=== PATIENT | male | born 1990 | race African-American/Black ===

== ENCOUNTER 2023-03-10 09:20 | Inpatient (IN) ==
[2023-03-10] MEDS ORDERED: fentaNYL citrate PF 100 MCG/2 ML VIAL ONE (09:34)
[2023-03-10] MEDS ORDERED: fentaNYL citrate PF 100 MCG/2 ML VIAL IM ONE (09:34)
--- NOTE | 2023-03-10 09:39 | Emergency Department Note ---
ED Provider Note History of Present Illness Chief Complaint: Knee Injury/Pain Stated Complaint: RT KNEE PAIN Time Seen by Provider: 03/10/23 09:30 32-year-old [employer] [place] inmate who presents to the emergency department for evaluation of a right knee injury when he fell this morning. The patient has a history of Parkinson's disease, and uses a walker for ambulation. The patient reports that he lost his balance while trying to get off of the toilet and fell, twisting his knee. When he tried to stand up again, he fell a second time. The patient rates his discomfort a 10 out of 10. Home Medications Medication Instructions Recorded Confirmed Type albuterol sulfate 90 mcg/actuation 1 inh inhalation QID PRN 03/02/23 03/02/23 History aerosol inhaler atorvastatin 20 mg tablet (Lipitor) 20 mg PO DAILY 03/02/23 03/02/23 History buspirone 30 mg tablet 30 mg PO BID 03/02/23 03/02/23 History doxepin 75 mg capsule 75 mg PO DAILY 03/02/23 03/02/23 History ibuprofen 600 mg tablet 600 mg PO Q6H PRN 03/02/23 03/02/23 History lisinopril 40 mg tablet 40 mg PO DAILY 03/02/23 03/02/23 History metoprolol tartrate 100 mg tablet 100 mg PO BID 03/02/23 03/02/23 History mirtazapine 15 mg tablet 15 mg PO DAILY 03/02/23 03/02/23 History nabumetone 500 mg tablet 500 mg PO BID 03/02/23 03/02/23 History pantoprazole 40 mg tablet,delayed 40 mg PO DAILY 03/02/23 03/02/23 History release (Protonix) tolnaftate 1 % topical cream 1 applic topical DAILY 03/02/23 03/02/23 History trazodone 100 mg tablet 100 mg PO DAILY 03/02/23 03/02/23 History venlafaxine 25 mg tablet 25 mg PO DAILY 03/02/23 03/02/23 History Allergies Allergy/AdvReac Type Severity Reaction Status Date / Time No Known Drug Allergies AdvReac Verified 03/02/23 13:14 Past Med/Surg History Medical History Anxiety Chronic low back pain Depression High cholesterol HTN (hypertension) Lumbar radicular pain Tremor Social History Smoking Status: Never smoker Hx Alcohol Use: No Hx Substance Use: No Preferred Language: Lithuanian Visual Impairment: No Limitations Hearing Ability: Normal Beliefs That Will Affect Care: None marital status: Current Living Situation: Other current occupational status: unemployed current occupation: inmate Feels Safe at Home: Yes Physical Exam Vital Signs Vital Signs - 24 hr 03/10/23 09:22 03/10/23 09:52 03/10/23 10:25 Temperature 36.8 C Temperature Source Temporal Artery Scan Pulse Rate 94 H 97 H Pulse Rate [Apical] 91 H Pulse Rhythm [Apical] Regular Respiratory Rate 18 18 Respiratory Effort / Characteristics Non-Labored Spontaneous Respiratory Depth Normal Normal Respiratory Pattern Regular Regular Blood Pressure 141/86 H Blood Pressure [Right Arm] 130/98 Blood Pressure Mean 104 Blood Pressure Mean [Right Arm] 108 Blood Pressure Position Sitting Blood Pressure Position [Right Arm] Lying Pulse Oximetry 97 94 Oxygen Delivery Method Room Air Room Air Sepsis Recent Fever Within 48 Hours No Sepsis New/Unexplained Change in Mental Status No Sepsis Action Taken by Nursing No Action Required 03/10/23 13:59 03/10/23 14:36 Temperature Temperature Source Pulse Rate 87 Pulse Rate [Apical] 91 H Pulse Rhythm [Apical] Regular Respiratory Rate 18 Respiratory Effort / Characteristics Non-Labored Spontaneous Respiratory Depth Normal Respiratory Pattern Regular Blood Pressure Blood Pressure [Right Arm] 131/94 Blood Pressure Mean Blood Pressure Mean [Right Arm] 106 Blood Pressure Position Blood Pressure Position [Right Arm] Lying Pulse Oximetry 95 Oxygen Delivery Method Room Air Sepsis Recent Fever Within 48 Hours Sepsis New/Unexplained Change in Mental Status Sepsis Action Taken by Nursing CONSTITUTIONAL: Healthy and well nourished. Patient appears in severe disco mfort. HEENT: Normocephalic, atraumatic. MUSCULOSKELETAL: Examination shows diffuse edema of the right knee with a laterally dislocated patella. No tenderness to palpation through the proximal leg, and pedal pulses are intact. Further ligamentous exam could not be performed because of the patient's initial discomfort. INTEGUMENTARY: No rash or other significant dermatologic conditions noted. HEMATOLOGIC: No ecchymosis or petechiae. PSYCHIATRIC: Positive affect. NEUROLOGIC: Right lower extremity is sensory intact. Course Course Patient history and physical exam were performed. Nurses notes were reviewed. Vital signs were reviewed. I was unable to collect history from the patient as he was in severe discomfort. The patient was administered fentanyl 150 mcg IM. X-rays of the right knee shows a laterally displaced patella, with radiologist questioning a possible line of lucency over the mid fibula. At this point, I was able to reduce the patella as indicated in the previous Procedure section. It immediately dislocated again, indicating significant medial retinacular instability, even with the knee and full extension. I did attempt to perform tape application for stability, however this did not work. X-rays of the tib- fib again question the possibility of a line of lucency or vascular channel of the mid fibular region. At this point, I did reach out to her Dr. Mares, orthopedic surgeon on-call for [facility], who indicated that no surgical management could be performed until he knew the extent of the patient's injuries, and likely would not be an emergent surgical case. He did indicate that an MRI would need to be performed in order to determine the extent of injuries. At this point, I then reached out to the [facility] [place] clinical supervisor [employer], Ava, who indicated that insurance would cover an MRI as long as it was done in the emergency department. If he is discharged, he would need further MRI authorization, and their facility only has a mobile MRI unit every other week, possibly extending his work-up time an additional 3 to 4 weeks, which would be very difficult given the patient's history and need for a walker, as well as an adequate pain control. At this point, I did order a noncontrast MRI of the right knee. The patient did want something to eat, however indicated that I would prefer to wait in case the patient would require any acute surgical intervention. IV access was established, and the patient was hydrated with a liter of normal saline. An order was placed for as needed morphine as needed for pain control. There was a delay in MRI imaging because of technical issues. The patient's care was transferred to Sanchez Liz PA-C at change of shift. Please see his dictation for further MRI results, and discussions with Dr. Mares, who is also advised of the delayed MRI results. Administered Medications Morphine Sulfate (Morphine Sulfate 4 Mg/Ml 1 Ml Carp\Vial) 4 mg IV Q30M PRN PRN Reason: Pain Stop: 03/24/23 14:05 Last Admin: 03/10/23 15:53 Dose: 4 mg Documented By: Admin: 03/10/23 14:16 Dose: 4 mg Documented By: MICHELLE Discontinued Medications Fentanyl Citrate (Fentanyl Citrate Pf 100 Mcg/2 Ml Vial) Confirm Administered Dose 200 mcg .ROUTE .STK-MED ONE Stop: 03/10/23 09:35 Last Admin: 03/10/23 09:42 Dose: Not Given Documented By: MICHELLE Fentanyl Citrate (Fentanyl Citrate Pf 100 Mcg/2 Ml Vial) 150 mcg IM NOW ONE Stop: 03/10/23 09:35 Last Admin: 03/10/23 09:39 Dose: 150 mcg Documented By: MICHELLE Sodium Chloride (Nss 1000ml) 1,000 mls @ 999 mls/hr IV .Q1H1M ONE Stop: 03/10/23 13:58 Last Infusion: 03/10/23 14:44 Dose: 0 mls/hr Documented By: Admin: 03/10/23 13:27 Dose: 999 mls/hr Documented By: MICHELLE Ketorolac Tromethamine (Ketorolac Tromethamine 60 Mg/2 Ml Vial) 30 mg IM NOW STA Stop: 03/10/23 10:06 Last Admin: 03/10/23 10:08 Dose: Not Given Documented By: MICHELLE Ketorolac Tromethamine (Ketorolac Tromethamine 15 Mg/Ml Vial) 15 mg IV NOW STA Stop: 03/10/23 12:59 Last Admin: 03/10/23 13:27 Dose: 15 mg Documented By: MICHELLE Morphine Sulfate (Morphine Sulfate 10 Mg/Ml Carp/Vial) 8 mg IM NOW STA Stop: 03/10/23 11:59 Last Admin: 03/10/23 12:26 Dose: 8 mg Documented By: MICHELLE Ondansetron HCl (Ondansetron 4 Mg Od Tab) 4 mg PO NOW STA Stop: 03/10/23 11:59 Last Admin: 03/10/23 12:26 Dose: 4 mg Documented By: MICHELLE Medical Decision Making Medical Records Attestation: I reviewed the patient's medical records. Home Medications was personally reviewed by me Imaging Data Attestation: I personally reviewed and interpreted this imaging study as foll ows: My Impression: My interpretation of right knee x-rays shows a laterally dislocated patella with a questionable line of lucency of the right mid fibula. My interpretation of an additional right tib-fib x-ray, again questions line of lucency versus vascular channel of the right mid fibular region. Noncontrast MRI of the right knee was ordered, and was pending at the time of transfer of care at end of shift. Radiologist reports were also reviewed with concurrence. Radiologist's Impression: Knee X-Ray 03/10/23 09:34 XR knee RT 1 or 2V routine HISTORY: 32 years-old Male R knee injury, prob patellar dislocation right knee pain status post fall COMPARISON: None TECHNIQUE: 2 views of the right knee FINDINGS: Moderate to extensive soft tissue swelling of the knee is noted circumferentially. There is lateral dislocation of the patella. Moderate size joint effusion. Ill-defined obliquely oriented lucency of the mid fibular diaphysis. No acute fracture identified. IMPRESSION: 1. No acute fracture identified. 2. Soft tissue swelling with lateral dislocation of the patella. 3. Ill-defined obliquely oriented lucency of the mid fibular diaphysis is likely artifactual. Correlation with dedicated tibia and fibula radiographs recommended. ACT 112: Negative or not required by law. The above report was generated using voice recognition software. It may contain grammatical, syntax or spelling errors. Electronically signed by: Gerson Crespo M.D. 03/10/2023 10:36 AM Tibia/Fibula X-Ray 03/10/23 10:46 XR tibia fibula RT 2V CLINICAL HISTORY: Abnormal XR read - s/p patellar reduction. Right knee pain. COMPARISON STUDY: Right knee 03/10/2023. FINDINGS: There is persistent lateral patellar dislocation. Soft tissue swelling within the right knee again noted. Subtle lucency at the mid shaft of the right fibula is again noted. The tibia appears intact. IMPRESSION: 1. No change in the lateral patellar dislocation. 2. Subtle lucency at the mid shaft of the right fibula persists. This could represent a hairline fracture or vascular channel. Clinical correlation recommended to assess for pain at this location. ACT 112: Negative or not required by law. Electronically signed by: Osmin Powell M.D. 03/10/2023 11:36 AM MDM Narrative See ED Course section for further details of today's visit. The patient presents with complaint of severe right knee pain after falling this morning. Because of pain severity, the patient was initially administered IM fentanyl. X-rays of the right knee showed a lateral patellar dislocation. Reduction was easily performed, however the patient had notable medial retinacular retention, with easily recurrent patellar dislocation. I did attempt to tape the patella medially, however the patella only submarined under the tape. Because of concerns for other underlying injuries, and after discussed the case further with Dr. Mares, orthopedic surgeon on-call, an MRI was ordered and was pending at the time of my end of shift. Further disposition will be determined once MRI results are reviewed by Dr. Mares. Impression Closed dislocation of right patella, Effusion of right knee joint, Status post fall, History of Parkinson's disease Discharge Plan Visit Data Chief Complaint: Knee Injury/Pain Stated Complaint: RT KNEE PAIN ED Provider: Nirav Nichols ED Midlevel Provider: Karl Hughes Discharge Problem: Closed dislocation of right patella, Effusion of right knee joint, Status post fall, History of Parkinson's disease Forms Stand Alone Forms: My [facility] [employer] Prescriptions Prescriptions: No Action albuterol sulfate 90 mcg/actuation HFA aerosol inhaler 1 inh inhalation QID PRN atorvastatin [Lipitor] 20 mg tablet 20 mg PO DAILY buspirone 30 mg tablet 30 mg PO BID doxepin 75 mg capsule 75 mg PO DAILY ibuprofen 600 mg tablet 600 mg PO Q6H PRN lisinopril 40 mg tablet 40 mg PO DAILY metoprolol tartrate 100 mg tablet 100 mg PO BID pantoprazole [Protonix] 40 mg tablet,delayed release (DR/EC) 40 mg PO DAILY tolnaftate 1 % cream 1 applic topical DAILY trazodone 100 mg tablet 100 mg PO DAILY venlafaxine 25 mg tablet 25 mg PO DAILY nabumetone 500 mg tablet 500 mg PO BID mirtazapine 15 mg tablet 15 mg PO DAILY Referrals Referrals: Cydney WASHINGTON [Primary Care Provider] -
[2023-03-10] MEDS ORDERED: KETOROLAC TROMETHAMINE 60 MG/2 ML VIAL IM STA (10:05)
--- NOTE | 2023-03-10 10:37 | XRay Report ---
XR knee RT 1 or 2V routine HISTORY: 32 years-old Male R knee injury, prob patellar dislocation right knee pain status post fall COMPARISON: None TECHNIQUE: 2 views of the right knee FINDINGS: Moderate to extensive soft tissue swelling of the knee is noted circumferentially. There is lateral d islocation of the patella. Moderate size joint effusion. Ill-defined obliquely oriented lucency of th e mid fibular diaphysis. No acute fracture identified. IMPRESSION: 1. No acute fracture identified. 2. Soft tissue swelling with lateral dislocation of the patella. 3. Ill-defined obliquely oriented lucency of the mid fibular diaphysis is likely artifactual. Correla tion with dedicated tibia and fibula radiographs recommended. ACT 112: Negative or not required by law. The above report was generated using voice recognition software. It may contain grammatical, syntax o r spelling errors. Electronically signed by: Gerson Crespo M.D. 03/10/2023 10:36 AM
--- NOTE | 2023-03-10 11:37 | XRay Report ---
XR tibia fibula RT 2V CLINICAL HISTORY: Abnormal XR read - s/p patellar reduction. Right knee pain. COMPARISON STUDY: Right knee 03/10/2023. FINDINGS: There is persistent lateral patellar dislocation. Soft tissue swelling within the right kne e again noted. Subtle lucency at the mid shaft of the right fibula is again noted. The tibia appears intact. IMPRESSION: 1. No change in the lateral patellar dislocation. 2. Subtle lucency at the mid shaft of the right fibula persists. This could represent a hairline frac ture or vascular channel. Clinical correlation recommended to assess for pain at this location. ACT 112: Negative or not required by law. Electronically signed by: Osmin Powell M.D. 03/10/2023 11:36 AM
[2023-03-10] MEDS ORDERED: ONDANSETRON 4 MG OD TAB PO STA (11:58)
[2023-03-10] MEDS ORDERED: MoRPHine SULFATE 10 MG/ML CARP/VIAL IM STA (11:58)
[2023-03-10] MEDS ORDERED: SODIUM CHLORIDE 0.9% 1000ML 1,000 ML IV ONE (12:58)
[2023-03-10] MEDS ORDERED: KETOROLAC TROMETHAMINE 15 MG/ML VIAL IV STA (12:58)
[2023-03-10] MEDS: MoRPHine SULFATE 4 MG/ML 1 ML CARP\\VIAL IV PRN ×4 (14:16→20:27)
--- NOTE | 2023-03-10 19:35 | Magnetic Resonance Report ---
Exam(s): MRI RIGHT KNEE Without Contrast EXAM: MR Right Lower Extremity Without Intravenous Contrast, Knee CLINICAL HISTORY: Reason for exam: R knee injury. TECHNIQUE: Multiplanar magnetic resonance images of the right knee without intravenous contrast. COMPARISON: No relevant prior studies available. FINDINGS: There are findings of recent lateral patellar dislocation. Medial patellofemoral ligament is completely torn at its femoral attachment. Patella is laterally subluxed with respect to the trochlea. There is chondral surface irregularity along the medial patellar facet suggesting chondral fractures. There is an osteochondral impaction fracture along the peripheral aspect of the lateral femoral condyle with subjacent bone marrow edema. Lipohemarthrosis is noted in the knee. There is a subtle osteochondral fracture involving the medial aspect of the lateral tibial plateau. There is focal articular surface depression measuring 3 mm and subchondral bone marrow edema. Medial and lateral menisci are intact. Femorotibial articular cartilage is maintained. Medial and lateral ligaments and supporting structures are intact. Extensor mechanism is intact. Anterior and posterior cruciate ligaments are intact. There is diffuse subcutaneous edema. IMPRESSION: 1. Recent lateral patellar dislocation with complete tear of the medial patellofemoral ligament at its femoral attachment. 2. Associate osteochondral impaction fracture involving the peripheral aspect of the lateral femoral condyle. 3. Chondral surface irregularity along the medial patellar facet suggesting chondral fracture. 4. Small osteochondral impaction fracture involving the medial aspect of the lateral tibial plateau. 5. Lipohemarthrosis and soft tissue swelling. Electronically signed by: Santino Gilman M.D. 03/10/23 19:34 PM
--- NOTE | 2023-03-10 20:27 | Emergency Department Note ---
ED Visit Note Case was signed out to me at time of shift change from my colleague Karl Hughes PA-C pending MRI of the right knee. See prior ED notes for further details. Patient rested comfortably until MRI had resulted which demonstrated complete tear of the medial patellofemoral ligament at its femoral attachment, fracture of the lateral tibial plateau, and chondral irregularities of the lateral femoral condyle and medial patellar facet. Patient was evaluated by Dr. Mares (orthopedics on-call) at bedside who will admit the patient under his service for definitive management. Dr. Mares requested a knee immobilizer and elevation, and the patient can eat this evening. .
--- NOTE | 2023-03-10 20:43 | History & Physical Report ---
Date of Service March 10, 2023 Assessment & Plan (1) Closed dislocation of right patella: (2) Effusion of right knee joint: (3) Instability of right knee joint: Plan Given the significant instability of his patella and acute traumatic injury with his underlying tremor and weakness of his legs, I think he is at significant risk of failure potential additional injury with any attempted outpatient management with bracing and physical therapy. His acute injury represents an avulsion of the medial epicondyle. There is an opportunity to acutely repair with the expectation of good outcomes of stability to the patellofemoral joint. My recommendation is to proceed with surgery which would include knee arthroscopy, chondroplasty, loose body removal, open medial patellofemoral ligament repair. This will involve an examination under anesthesia. I reviewed his diagnosis, prognosis, and treatment options. I did review that I recommend surgical intervention soon before he transition back to the senior living setting. Outcomes of the surgery will be dependent on appropriate physical therapy. He will have a medial patellofemoral ligament reconstruction physical therapy protocol prescribed to him. This involves use of the brace and protected weightbearing for 6 weeks. Physical therapy is best done at 23 X/week. We reviewed the risks of surgery includes but is not limited to, infection, nerve or vessel injury, arthrofibrosis, need for repeat or revision surgery, failure of the surgery to provide adequate stability, implant complications and migration, failure to heal, pain syndromes, blood clots, and complications later anesthesia. After our discussion, he demonstrated a good understanding of his diagnosis and treatment options, he asked appropriate questions, and desired to proceed with surgical treatment as I described. He will be admitted to my service. I will ask for internal medicine or the hospitalist to look over his parkinsonian based medications further recommendations on ongoing treatment while he is here as a surgical patient. He will be n.p.o. at midnight for surgery tomorrow. History of Present Illness Chief Complaint: Right patella traumatic dislocation Primary Care Provider: PADMINI Lamas 32-year-old incarcerated male reports that he slipped and fell in the bathroom area today resulting in his significant displacement of his knee and inability to bear weight. He was brought to the emergency room and diagnosed with a traumatic patella dislocation. He states he has never had a patella dislocation or right knee problem before. The pain has been severe. The ER staff attempted appropriate management with closed reduction. Unfortunately, the reduction could not be maintained. He is easily slipped laterally despite all efforts including bracing and taping. Because of reported severe displacement and his inability remain reduced and ambulate safely, an MRI was obtained. Senior Living guards accompanying him reports that it is challenging for patients to be treated with physical therapy. Patient reports he has had a several year history of significant tremors. When he was at another senior living he was treated as if he has had parkinsonian disease. He was administered Parkinson's medications. He did not have much improvement. Upon arrival at [facility], his parkinsonian medication was discontinued. He had a interval relief of some tremor but recently they have started to worsen. He wants to be seen by neurology soon. He says he has about 2 years of incarceration left. He says his tremors resolved significant difficulty walking. He has had leg weakness over the past years. He has been wheelchair- bound at times. He says when the parkinsonian medications were discontinued he made significant progress from a wheelchair to a walker and then eventually to a cane. Recently his left-sided tremors have become worse and he is reverted back to a cane, and he thinks that may be a wheelchair may be soon. He is very concerned about his knee because he has enough difficulty getting about the present as is. He has no confidence that a knee brace will be helpful for him given his current state. Allergies Allergy/AdvReac Type Severity Reaction Status Date / Time No Known Drug Allergies AdvReac Verified 03/02/23 13:14 Home Medications Medication Instructions Recorded Confirmed Type albuterol sulfate 90 mcg/actuation 1 inh inhalation QID PRN 03/02/23 03/02/23 History aerosol inhaler atorvastatin 20 mg tablet (Lipitor) 20 mg PO DAILY 03/02/23 03/02/23 History buspirone 30 mg tablet 30 mg PO BID 03/02/23 03/02/23 History doxepin 75 mg capsule 75 mg PO DAILY 03/02/23 03/02/23 History ibuprofen 600 mg tablet 600 mg PO Q6H PRN 03/02/23 03/02/23 History lisinopril 40 mg tablet 40 mg PO DAILY 03/02/23 03/02/23 History metoprolol tartrate 100 mg tablet 100 mg PO BID 03/02/23 03/02/23 History mirtazapine 15 mg tablet 15 mg PO DAILY 03/02/23 03/02/23 History nabumetone 500 mg tablet 500 mg PO BID 03/02/23 03/02/23 History pantoprazole 40 mg tablet,delayed 40 mg PO DAILY 03/02/23 03/02/23 History release (Protonix) tolnaftate 1 % topical cream 1 applic topical DAILY 03/02/23 03/02/23 History trazodone 100 mg tablet 100 mg PO DAILY 03/02/23 03/02/23 History venlafaxine 25 mg tablet 25 mg PO DAILY 03/02/23 03/02/23 History Past Med/Surg History Medical History Anxiety Chronic low back pain Depression High cholesterol HTN (hypertension) Lumbar radicular pain Tremor Social History Smoking Status: Never smoker Hx Alcohol Use: No Hx Substance Use: No Preferred Language: Greek Visual Impairment: No Limitations Hearing Ability: Normal Beliefs That Will Affect Care: None marital status: Current Living Situation: Other current occupational status: unemployed current occupation: inmate Feels Safe at Home: Yes Review of Systems All systems reviewed & are unremarkable except as noted in HPI & below. Physical Exam General: He has significant tremor throughout the left more so than the right upper and lower extremities. He has clear insight. He converses well. He gives a detailed history. RLE: There is significant edema and effusion about the knee. The patella is obviously laterally translocated. It is easily reducible. And also will laterally translate over a few minutes of relaxation. It is quite unstable. He is unable to activate his quad form straight leg raise. Positive DF/PF/EHL. Sensation grossly intact to light touch. He is intolerant of the ligamentous knee exam. Constitutional WD/WN, vitals as above Respiratory normal respiratory effort; no respiratory distress Cardiovascular Extremities: normal capillary refill; no edema Chest (Breasts) Chest: normal inspection of chest Skin no rashes, warm and dry Psychiatric A+Ox3, euthymic affect Results & Data Results & Data Laboratory Results . Diagnostic Findings Radiographs reviewed from today and these include x-rays of the knee and tib- fib. X-rays show an obvious lateral dislocation of the patella. The distal tib-fib area shows a linear lucency that is nondisplaced in the midshaft of the fibula. Uncertain if this is clinically relevant or an actual fracture. An MRI was obtained acutely today given his incarceration and significant injury today. The MRI demonstrates that he has sustained a complete avulsion of the medial retinaculum and medial patellofemoral ligament from the medial epicondyle of the femur. The patella has evidence of chondral injury. There are loose bodies. There are impaction injuries in the lateral femoral condyle. His ACL, PCL, LCL, PLC, and the MCL appear to be intact. There is edema pattern throughout the medial retinacular and soft tissues. It does appear that the medial collateral ligament has escaped significant injury PG Care Time/CCT Total # of Minutes Spent Total Time Spent with Patient: Total time spent is greater than 50% in coordination of care (as documented) at patient's floor/unit and/or counseling patient: Coding Level of Care Code 99276 INT INP/OBS CARE 3/75MIN (57 - DECISION FOR SURGERY) Diagnoses Closed dislocation of right patella S83.004A Encounter type: initial encounter Effusion of right knee joint M25.461 Instability of right knee joint M25.361 (1) Closed dislocation of right patella Encounter type: initial encounter Qualified Code(s): S83.004A - Unspecified dislocation of right patella, initial encounter
[2023-03-10] MEDS ORDERED: oxyCODONE HCL IR 5 MG TAB (IMMEDIATE RELEASE) PO PRN (22:24)
[2023-03-10] MEDS ORDERED: diphenhydrAMINE 50 MG/ML VIAL IV PRN (22:24)
[2023-03-10] MEDS ORDERED: ALUMINUM/MAGNESIUM SUSP 30 ML UDC PO PRN (22:24)
[2023-03-10] MEDS ORDERED: ALBUTEROL HFA 8 GM INHALER INH PRN (22:24)
[2023-03-10] MEDS ORDERED: ACETAMINOPHEN 500 MG TAB PO SCH (22:24)
[2023-03-10] MEDS ORDERED: HYDROmorphone INJ 0.5 MG/0.5 ML SYR IV PRN (22:24)
[2023-03-10] MEDS ORDERED: diphenhydrAMINE Capsule 25 MG CAP PO PRN (22:24)
[2023-03-10] MEDS ORDERED: ONDANSETRON INJ 2 MG/ML 2 ML VIAL IV PRN (22:24)
[2023-03-10] MEDS: ACETAMINOPHEN 500 MG TAB PO SCH (23:20)
[2023-03-10] MEDS: busPIRone 15 MG TAB PO SCH (23:21)
[2023-03-10 23:37] LABS: Basophils # (auto) 0.06 K/uL (0-0.2); Basophils % (auto) 0.7 %; Eosinophils # (auto) 0.29 K/uL (0-0.50); Eosinophils % (auto) 3.5 %; Hematocrit (blood only) 38.7 % (42.0-52.0); Hemoglobin 12.5 g/dl (14.0-18.0); Immature Granulocytes # (auto) 0.02 K/uL (0.01-0.20); Immature Granulocytes % (auto) 0.2 %; Lymphocytes # (auto) 3.62 K/uL (1.2-3.4); Lymphocytes % (auto) 43.8 %; Mean Corpuscular Hemoglobin 27.1 pg (25.0-34.0); Mean Corpuscular Hgb Conc 32.3 g/dL (32.0-36.0); Mean Corpuscular Volume 83.8 fL (80.0-100.0); Mean Platelet Volume 9.8 fL (9.4-12.4); Monocytes # (auto) 0.69 K/uL (0.11-0.59); Monocytes % (auto) 8.3 %; Neutrophils # (auto) 3.59 K/uL (1.40-6.50); Neutrophils % (auto) 43.5 %; Platelet Count 281 K/uL (130-400); RDW Coefficient of Variation 14.2 % (11.5-14.5); RDW Standard Deviation 43.5 fL (36.4-46.3); Red Blood Count 4.62 M/uL (4.70-6.10); White Blood Count 8.27 K/ul (4.8-10.8)
[2023-03-10 23:52] LABS: BUN Creatinine Ratio 10.6 (10-20); Creatinine Clr Calc Pharmacy 123.4 ml/min; Est GFR (African American) 89.5 ml/min; Est GFR (Non-African American) 77.2 ml/min; Potassium 3.3 mmol/L (3.5-5.1)
[2023-03-10] MEDS: oxyCODONE HCL IR 5 MG TAB (IMMEDIATE RELEASE) PO PRN (23:53)
[2023-03-11 00:25] LABS: Partial Thromboplastin Time 28.7 Seconds (21.0-31.0); Prothrombin Time 10.6 Seconds (9.0-12.0)
[2023-03-11] MEDS: HYDROmorphone INJ 0.5 MG/0.5 ML SYR IV PRN ×5 (01:07→20:40)
[2023-03-11] MEDS: oxyCODONE HCL IR 5 MG TAB (IMMEDIATE RELEASE) PO PRN ×4 (03:25→22:59)
[2023-03-11] MEDS: ACETAMINOPHEN 500 MG TAB PO SCH ×3 (06:01→22:07)
[2023-03-11] MEDS: busPIRone 15 MG TAB PO SCH ×2 (07:45→19:38)
[2023-03-11] MEDS: PANTOprazole 40 MG TAB PO SCH (07:46)
[2023-03-11] MEDS: MIRTAZAPINE TAB 15 MG TAB PO SCH (07:46)
[2023-03-11] MEDS: VENLAFAXINE HCL 50 MG TAB PO SCH (07:47)
[2023-03-11] MEDS: traZODone HCL 100 MG TAB PO SCH (07:47)
[2023-03-11] MEDS ORDERED: TOLNAFTATE 1% TOP SCH (09:00)
--- NOTE | 2023-03-11 09:21 | Hospitalist Consultation ---
Date of Consultation March 11, 2023 Assessment & Plan (1) Coarse tremors: (2) Closed dislocation of right patella: (3) Anxiety: (4) Depression: (5) High cholesterol: (6) HTN (hypertension): (7) Chronic low back pain: Plan 32yo M with history of hypertension, high cholesterol, anxiety/depression, chronic low back pain, and tremor/poor balance of uncertain etiology presented to the ER on 03/10 after a fall due to poor balance and sustained an acute R patellar dislocation with MRI findings of tear of MPFL, osteochondral impaction fracture of lateral femoral condyle, likely chondral fracture of medial patella facet, osteochondral impaction fracture of lateral tibial plateau. He has had no prior surgeries. He is at a low risk of adverse events for proceeding with surgery. Regarding clinical question of patient's Parkinson's/tremor medication management, the diagnosis of his neurologic manifestations fo tremors and poor balance remains unclear. It does not seem to be consistent with Parkinson's disease. He has recently been under the management of neurology by Telemedicine and current medications and discontinuation of medications are based upon neurology's management. He does have an appointment upcoming with neurology to continue evaluation and management. The remainder of his chronic conditions appear to be relatively stable. #Tremors/poor balance - Uncertain etiology, not consistent with Parkinson's - Management per neurology outpatient, no active interventions or medications indicated while inpatient - May predispose him for future injuries, so will be important to keep neurology evaluation #R patellar dislocation - Plan per ortho, surgery planned today - Pain management deferred to ortho - patient does express concern over this - DVT ppx per ortho - Diet to be resumed post-operatively #HTN - Continue Lisinopril 40 mg daily, Metoprolol 100 mg twice daily #High cholesterol - Continue Atorvastatin 20 mg daily #Anxiety/depression - Continue Mirtazapine 15 mg nightly, Venlafaxine 25 mg nightly, Buspirone 30 mg nightly #Anemia - Mild, recommend repeating again outpatient in a couple weeks and determine need for further work up with primary care provider at correctional facility #Chronic low back pain - Lumbar MRI 09/21/22 with mild central/left paramedian disc protrusion at L5-S1 - Seen by pain management 03/02/23 - Recommend consideration of gabapentin 300mg titrated to 3 times daily - will hold on this for now in acute perioperative period History of Present Illness Reason for Consultation: Parkinson's/tremor medication management Requesting Physician: Roscoe Mares MD Attending Physician: Roscoe Mares MD History of Present Illness 32yo M with history of hypertension, high cholesterol, anxiety/depression, chronic low back pain, and tremor/poor balance of uncertain etiology presented to the ER on 03/10 after a fall due to poor balance and sustained an acute R patellar dislocation. He was admitted to the orthopedic service and had MRI obtained. Current plan is for surgery today to address his right patellar dislocation including knee arthroscopy, chondroplasty, loose body removal, open medial patellofemoral ligament repair. Consult was placed for Parkinson's/tremor medication management. Patient reports he went into nursing home 2019. In 2019 was diagnosed with Parkinson's disease for unclear reasons while in [facility]. He was started on Sinemet at that time. After the first month being on it reports he started having tremors and difficulty walking with poor balance. The medication dose was increased but his symptoms continued to progress. Again the medication was increased again but symptoms continued to progress. Then he reports he was started on Aricept. Then started getting hallucinations. Then diagnosed with psychosis and started on Zyprexa but psychiatric physician. Has since come off all these medications as of January 2022 after doing telemedicine visits with neurologist. Had brain MRI and was told it was normal. After stopping all the medications, his mobility and tremors improved to point of 3 months was essentially symptom free. About 7 months ago tremors and mobility worsened again. In past had needed a wheelchair and since symptoms worsening again has been working on trying to get a wheelchair again. Recently was using a cane and walker. Then yesterday fell while trying to go towards bathroom and lost control of legs and balance. Completely fell down and in process injured his R leg. States there was about 20 minutes of being passed out after seeing his bone being out of place. Notably, in May will have a neurologist come in person at correctional facility to evaluate him and determine etiology of tremors and poor mobility. He currently denies lightheadedness/dizziness, headache, chest pain, palpitations, dyspnea, GI/ concerns. Reports his pain is well controlled with current regimen. Endorses poor vision that occurred after taking Aricept. PHx: HTN High cholesterol Anxiety/depression Chronic low back pain Tremors and poor balance of undetermined etiology Medications: Albuterol as needed Atorvastatin 20 mg daily Buspirone 30 mg nightly Lisinopril 40 mg daily Metoprolol 100 mg twice daily Mirtazapine 15 mg nightly Venlafaxine 25 mg nightly Surgical Hx: No prior surgeries Family Hx: None Social Hx: Nicotine pouch every once in a while Denies alcohol use Denies illicit drug use Allergies Allergy/AdvReac Type Severity Reaction Status Date / Time No Known Drug Allergies AdvReac nkda Verified 03/10/23 21:37 Home Medications Medication Instructions Recorded Confirmed Type albuterol sulfate 90 mcg/actuation 1 inh inhalation QID PRN Shortness 03/02/23 03/10/23 History aerosol inhaler Of Breath Or Wheezing atorvastatin 20 mg tablet (Lipitor) 20 mg PO DAILY 03/02/23 03/10/23 History buspirone 30 mg tablet 30 mg PO HS 03/02/23 03/10/23 History lisinopril 40 mg tablet 40 mg PO DAILY 03/02/23 03/10/23 History metoprolol tartrate 100 mg tablet 100 mg PO BID 03/02/23 03/10/23 History mirtazapine 15 mg tablet 15 mg PO HS 03/02/23 03/10/23 History venlafaxine 25 mg tablet 25 mg PO HS 03/10/23 03/10/23 History Patient History Medical History (Updated 03/11/23 @ 20:47 by Ama Cisneros MD) Anxiety Chronic low back pain Depression High cholesterol HTN (hypertension) Lumbar radicular pain Tremor Social History Smoking Status: Never smoker Do You Dip or Chew Tobacco: Yes; Hx Alcohol Use: No Hx Substance Use: No Preferred Language: Guinean Communication Ability: Effective Visual Impairment: No Limitations Hearing Ability: Normal Golf Ball Inspector Required: No Beliefs That Will Affect Care: None marital status: Current Living Situation: Other Current Living Situation Comment: [facility] current occupational status: unemployed current occupation: inmate Feels Safe at Home: Yes Assistive Devices: Hospital Bed and Walker Review of Systems Review of Systems: Complete 10 point ROS negative except as noted in the HPI Physical Exam Physical Exam: General: Well-appearing, NAD HEENT: Normal conjunctivae Cardiovascular: RRR, no M/R/G Pulmonary: CTAB, no W/R/R Abdomen: Soft, NT/ND, no guarding Extremities: R knee in knee immobilizer Integumentary: No suspicious rash or lesion on exposed skin Neurologic: AAOx3, intermittent tremulousness of all extremities, decreased SILT of RLE compared to LLE Psychiatric: Appropriate mood/affect Results & Data Results & Data Vital Signs (Past 12 Hours) Vital Signs Temp Pulse Pulse Resp BP BP Pulse Ox 03/11/23 08:20 36.5 C 71 16 130/78 97 03/10/23 22:10 36.5 C 99 H 16 147/77 H 97 03/10/23 22:10 03/10/23 21:53 93 H 16 139/92 98 Pulse Ox O2 Del Method O2 Del Method 03/11/23 08:20 Room Air 03/10/23 22:10 Room Air 03/10/23 22:10 97 Room Air 03/10/23 21:53 Room Air Laboratory Results CBC notable for hemoglobin 12.5, PT/INR within normal limits, BMP notable for potassium of 3.3, glucose elevated to 115 negative COVID test Diagnostic Findings Knee XR 03/10: IMPRESSION: 1. No acute fracture identified. 2. Soft tissue swelling with lateral dislocation of the patella. 3. Ill-defined obliquely oriented lucency of the mid fibular diaphysis is likely artifactual. Correlation with dedicated tibia and fibula radiographs recommended. Tibia/Fibula XR 03/10 IMPRESSION: 1. No change in the lateral patellar dislocation. 2. Subtle lucency at the mid shaft of the right fibula persists. This could represent a hairline fracture or vascular channel. Clinical correlation recommended to assess for pain at this location. Knee MRI 03/10: IMPRESSION: 1. Recent lateral patellar dislocation with complete tear of the medial patellofemoral ligament at its femoral attachment. 2. Associate osteochondral impaction fracture involving the peripheral aspect of the lateral femoral condyle. 3. Chondral surface irregularity along the medial patellar facet suggesting chondral fracture. 4. Small osteochondral impaction fracture involving the medial aspect of the lateral tibial plateau. 5. Lipohemarthrosis and soft tissue swelling. PG Care Time/CCT Total # of Minutes Spent Total Time Spent with Patient: Total time spent is greater than 50% in coordination of care (as documented) at patient's floor/unit and/or counseling patient: Coding Level of Care Code 49097 IN/OBS CONSULT LVL 4,60M Diagnoses Coarse tremors G25.2 Closed dislocation of right patella S83.004A Encounter type: initial encounter Anxiety F41.9 Depression F32.A High cholesterol E78.00 HTN (hypertension) I10 Chronic low back pain M54.50; G89.29 (2) Closed dislocation of right patella Encounter type: initial encounter Qualified Code(s): S83.004A - Unspecified dislocation of right patella, initial encounter
[2023-03-11] MEDS ORDERED: MIDAZOLAM HCL 1 MG/ML 2ML VIAL ONE (09:47)
[2023-03-11] MEDS ORDERED: ONDANSETRON INJ 2 MG/ML 2 ML VIAL ONE (09:47)
[2023-03-11] MEDS ORDERED: LIDOCAINE 2% 2 ML VIAL/AMP(20MG/ML) INFIL ONE (09:47)
[2023-03-11] MEDS ORDERED: fentaNYL citrate PF 100 MCG/2 ML VIAL ONE (09:47)
[2023-03-11] MEDS ORDERED: PROPOFOL IV EMULSION 10 MG/ML 20 ML VIAL IV ONE (09:47)
--- NOTE | 2023-03-11 09:53 | Anesthesiology Consultation ---
Date of Service March 11, 2023 Assessment & Plan Chart Review Chart Review: Acceptable Risk for Surgery and Patient NOT seen in Pre Admission Testing Consults Requested none ASA ASA2 Proposed Anesthesia Anesthesia Type: General Regional Regional Laterality: Right Site: Adductor Canal History Surgery Operation Date: 03/11/23 10:00 Proposed Procedures p Arthroscopy Knee(Right) - Roscoe Mares MD Height/Weight Height: 6 ft 1 in Weight: 133.2 kg Allergies Allergy/AdvReac Type Severity Reaction Status Date / Time No Known Drug Allergies AdvReac nkda Verified 03/10/23 21:37 Medications Home Medications Medication Instructions Recorded Confirmed Last Taken albuterol sulfate 90 mcg/actuation 1 inh inhalation QID PRN Shortness 03/02/23 03/10/23 Unknown aerosol inhaler Of Breath Or Wheezing atorvastatin 20 mg tablet (Lipitor) 20 mg PO DAILY 03/02/23 03/10/23 Unknown buspirone 30 mg tablet 30 mg PO HS 03/02/23 03/10/23 Unknown lisinopril 40 mg tablet 40 mg PO DAILY 03/02/23 03/10/23 Unknown metoprolol tartrate 100 mg tablet 100 mg PO BID 03/02/23 03/10/23 Unknown mirtazapine 15 mg tablet 15 mg PO HS 03/02/23 03/10/23 Unknown venlafaxine 25 mg tablet 25 mg PO HS 03/10/23 03/10/23 Unknown Active Medications Generic Name Dose Route Start Last Admin Trade Name Freq PRN Reason Stop Dose Admin Acetaminophen 1,000 mg 03/10/23 23:00 03/11/23 06:01 Acetaminophen 500 Mg Tab PO 04/09/23 22:59 1,000 mg Q8H FARIHA Administration Buspirone HCl 30 mg 03/10/23 22:24 03/11/23 07:45 Buspirone 15 Mg Tab PO 04/09/23 22:23 30 mg BID FARIHA Administration Hydromorphone HCl 0.5 mg 03/10/23 22:24 03/11/23 07:30 Hydromorphone Inj 0.5 Mg/0.5 Ml Syr IV 03/24/23 22:23 0.5 mg Q3H PRN Administration Pain (6,7,8,9,10) Mirtazapine 15 mg 03/11/23 09:00 03/11/23 07:46 Mirtazapine Tab 15 Mg Tab PO 04/10/23 08:59 15 mg DAILY FARIHA Administration Oxycodone HCl 10 mg 03/10/23 22:24 03/11/23 07:25 Oxycodone Hcl Ir 5 Mg Tab (Immediate Release) PO 03/24/23 22:23 10 mg Q4H PRN Administration SEVERE Pain (7,8,9,10) Pantoprazole Sodium 40 mg 03/11/23 09:00 03/11/23 07:46 Pantoprazole 40 Mg Tab PO 04/10/23 08:59 40 mg DAILY FARIHA Administration Trazodone HCl 100 mg 03/11/23 09:00 03/11/23 07:47 Trazodone Hcl 100 Mg Tab PO 04/10/23 08:59 100 mg DAILY FARIHA Administration Venlafaxine HCl 25 mg 03/11/23 09:00 03/11/23 07:47 Venlafaxine Hcl 50 Mg Tab PO 04/10/23 08:59 25 mg DAILY FARIHA Administration Past Medical History Medical History Anxiety Chronic low back pain Depression High cholesterol HTN (hypertension) Lumbar radicular pain Tremor Exercise / Class Metabolic Activity III < 4 Walking/Shop/Light housework Past Anesthesia History No Hx of Anesthesia Complications and No Family Hx of Anesthesia Complications History of PONV No Hx of PONV and No Hx of Motion Sickness Social History Smoking Status: Never smoker Do You Dip or Chew Tobacco: Yes Hx Alcohol Use: No Hx Substance Use: No substance use type: does not use Physical Exam Vital Signs Last Vital Signs Temp 36.5 C 03/11/23 08:20 Pulse 71 03/11/23 08:20 Resp 16 03/11/23 08:20 BP 130/78 03/11/23 08:20 Pulse Ox 97 03/11/23 08:20 O2 Del Method Room Air 03/11/23 08:20 Testing Laboratory Results 03/10/23 23:15 03/10/23 23:15 PT 10.6 Seconds (9.0-12.0) 03/10/23 23:15 INR 1.0 (0.9-1.1) 03/10/23 23:15 APTT 28.7 Seconds (21.0-31.0) 03/10/23 23:15
[2023-03-11] MEDS ORDERED: fentaNYL citrate PF 100 MCG/2 ML VIAL IV PRN (10:42)
[2023-03-11] MEDS ORDERED: ATROPINE SULFATE 0.1 MG/ML 10ML SYR IV PRN (10:42)
[2023-03-11] MEDS ORDERED: ePHEDrine sulfate 50 MG/ML AMP IV PRN (10:42)
[2023-03-11] MEDS ORDERED: FLUMAZENIL 0.1 MG/1 ML 10 ML VIAL IV PRN (10:42)
[2023-03-11] MEDS ORDERED: ONDANSETRON INJ 2 MG/ML 2 ML VIAL IV PRN (10:42)
[2023-03-11] MEDS ORDERED: NALOXONE HCL 0.4 MG/1 ML VIAL/CARP IV PRN (10:42)
[2023-03-11] MEDS ORDERED: HYDROmorphone INJ 1 MG/ML SYRINGE IV PRN (10:42)
[2023-03-11] MEDS ORDERED: PROMETHAZINE HCL 12.5 MG in SODIUM CHLORIDE 0.9% 50 ML IV PRN (10:42)
[2023-03-11] MEDS ORDERED: EPINEPHrine INJ 1 MG/ML AMP ONE (10:56)
[2023-03-11] MEDS ORDERED: ROPIVACAINE 0.5% 5 MG/ML 30 ML VIAL ONE (10:56)
--- NOTE | 2023-03-11 11:07 | History & Physical Bridge Note ---
Date of Service March 11, 2023 History & Physical Bridge Note I have examined the patient, reviewed the History & Physical and in the interval since the performance of the History & Physical I have noted the following changes of clinical significance: no changes noted. Hospitalist consult reviewed and appreciated
[2023-03-11] MEDS ORDERED: ceFAZolin 330 MG/ML 1 GM VIAL ONE (11:38)
[2023-03-11] MEDS ORDERED: HYDROmorphone INJ 2 MG/ML SYR/VIAL ONE (12:40)
[2023-03-11] MEDS ORDERED: KETOROLAC 30 MG/ML VIAL ONE (13:43)
--- NOTE | 2023-03-11 14:18 | Operative Report ---
PG Post Operative Report Pre & Post Diagnosis Operation Date: 03/11/23 10:00 Pre-Op Diagnosis: Closed dislocation of right patella, Instability of right knee joint, Patellar chondral injury, loose bodies Post-Op Diagnosis: Closed dislocation of right patella, Instability of right knee joint, Patellar chondral injury, loose bodies I identified the patient and participated in the time-out.: Yes Procedure Operation Date: 03/11/23 10:00 Actual Procedures p Right Knee Arthroscopy, Chondroplasty, Open Medial Patellofemoral Ligament and Retinacular Repair(Right) - Roscoe Mares MD Surgeon Roscoe Mares MD Security Monitor Guido Sanders Estimated Blood Loss 50 Findings See Below EUA demonstrated an easily dislocatable patella with a large effusion at the medial aspect. 0 station, stable anterior and posterior drawer, stable to varus and valgus stress at 0 and 30 degrees. Negative pivot shift. Arthroscopy revealed extensive disruption of the medial retinacular with an impaction injury to the medial patella facet with full-thickness chondral loss on a nonarticulating segment. There was fibrillation and articular injury to the lateral margin of the lateral femoral condyle. These areas were treated with chondroplasty to remove unstable flaps and stimulate underlying bone. There was a large loose body measuring 12 x 4 mm removed through an open medial incision that was likely the medial patellar facet lesion. Meniscal structure and cruciate ligaments were intact. There was mild chondral thinning in the medial compartment on the femur and tibial plateau. Medial patellofemoral ligament complex was repaired using a fiber tape stitch whipstitched into the substance of the tissue and anchored into a 4.75 bio composite swivel lock at Schottle's point and identified by fluoroscopy and open inspection. The more distal medial retinacular was also pulled off and stabilized with a another core of fiber tape whipstitch fixed and a separate 4.75 bio composite swivel lock just distal to the original. A Arthrex knotless 2.6 mm fiber tack was used for another distal segment of the medial retinacula. #1 Vicryl suture was used to repair the retinacular VMO. The patella had 1 quadrant of lateral and medial patella mobility after the repair. Full passive range of motion with acceptable tension. Specimens None Anesthesia Type General Complications none Disposition Accompanied Patient To Recovery: No Disposition: Recovery Room Indications 32-year-old incarcerated male with a history of tremor being treated as parkinsonian disease and no prior history of patellar instability was admitted to the emergency room with a first-time traumatic patellar lateral dislocation. He was closed reduced in the ER but reduction cannot be maintained. MRI was recommended which demonstrated large avulsions of the entirety of the MPFL complex and medial retinacula. Given the degree of injury and resultant instability, I recommended surgical intervention for direct repair in the acute setting. We discussed the risk, benefits, and alternatives, as outlined in the preoperative note. Informed consent was obtained in the clinic, as the prisoner wished to proceed with surgical management. Description of Procedure On the day of surgery was greeted in the preoperative holding area with informed consent was reviewed and confirmed. The surgical site was identified by the patient and signed by myself. The patient was turned over to the anesthesia team. The patient was taken to the operating place upon the OR table and anesthesia was induced. The position was supine for knee arthroscopy with a lateral post. All bony prominences what were well-padded. A nonsterile tourniquet was placed high in the thigh. The operative extremity was prepped and draped in usual sterile fashion for knee arthroscopy. Surgical timeout was called by the circulating nurse verified all present. Antibiotics been infused, and equipment was available and functional. Using superficial landmarks the lateral portal was established using #11 blade. Trocar was used to enter the joint and the camera was then introduced. The medial portal was established using arthroscopic visualization and spinal needle for localization. The capsulotomy performed using 11 blade under arthroscopic visualization. A probe was introduced and thorough diagnostic arthroscopy was carried out revealing the findings listed above. There was excessive hemarthrosis and active bleeding, so the leg was elevated. The tourniquet was inflated 300 mmHg for a total of 90 minutes. Attention was directed to the anterior compartment. The patella had some fibrillated cartilage in the central ridge. There was an impaction lesions at the far medial aspect of the medial patella facet with full thickness chondral defect measuring 12 x 4 mm. The central median ridge had fibrillated cartilage it was stable. The far lateral margin lateral femoral condyle had areas of punctate chondral injury which was stabilized using chondroplasty. Medial lateral compartments were without significant pathology. The cruciate ligaments are intact. Motorized shaver was used to evacuate excessive hematoma and clot as well as some punctate loose chondral bodies. The diagnostic arthroscopy was completed in the anterior compartment, the gutters, and the lateral compartment. The knee was then thoroughly irrigated with arthroscopic fluid and drained of arthroscopic fluid. Fluoroscopy was used identify the medial epicondyle and Schottle's point. Direct incision over the medial epicondyle was performed. Subcutaneous dissection was carried out using Bovie electrocautery for hemostasis. Caution was taken to the nearby infrapatellar branches of the cyst after this nerve. The retinacular was approached. It was hemorrhagic and torn. This tear was exploited. We elevated subcutaneously to identify the entirety of the medial retinaculum. The underside of the retinaculum had flaps that could be identified as the medial capsule and MPFL complex. Allis clamps were used to mobilize these. Once the layers were found, we were able to establish appropri ate control the patella complex. The knee was positioned at 30 degrees of flexion using a bump. The tissue was then translated down towards the medial epicondyle. An arthroscopic punch for the swivel lock was placed there. Examination of the tissue showed appropriate excursion down to the avulsed point. There is abundant frayed retinacular tissue that was debrided. Attention was then directed to the medial retinacular and MPFL repair. Fiber tape suture was used in a whipstitch running locking fashion for 2 cores to capture the medial side of the tissue. This was translated back to the origin. Significant good tension. Suture tape tails were loaded and a 4.75 bio composite swivel lock and it was placed in the original punch hole that was tapped. This seemed to gain control of the patella, but there still remained additional laxity more distally. The second fiber tape core stitch was loaded on the swivel lock and deployed just distal to the first 1. There was still retinacular tissue that was avulsed distal to that second swivel lock. Here, I used a 2.6 mm Arthrex knotless fiber tack anchor to capture tissue in a Guzman- Hernandez mattress suture. This seemed to restore the femoral avulsed medial retinacular and MPFL complex. Examination under anesthesia was carried out. There was approximately 1 to 2 quadrants of lateral patella mobility. 2 quadrant medial patella mobility. There was full passive range of motion and there did not seem to be excessive anterior compartment tension. The arthroscope was then reintroduced to the lateral portal. Debridement is carried out of the hematoma using motorized shaver. There appeared to be an intact medial retinacula. The capsule remains disrupted and this flap was reduced using motorized shaver. The knee was thoroughly irrigated using arthroscopic fluid. Arthroscopic instruments were removed from the knee. The open incision was thoroughly irrigated using arthroscopic pump. The retinaculum of the vastus medialis oblique us was then reapproximated using #1 Vicryl suture. This close down the lacerating hole. 0 Vicryl suture was used in the prepatellar bursal and subcutaneous tissues. Skin was approximated using 2-0 Vicryl suture, followed by yaquelin. Arthroscopic portals were closed using 3-0 Monocryl, backed up by Steri-Strips. The wounds are dressed with sterile Xeroform, sterile gauze, ABD, and contained by web roll followed by an Oscar wrap. The original ER knee immobilizer was placed back onto the knee. The patient tolerated procedure well, was asked with the operative without complication, and transferred to the recovery area in stable condition. Disposition: The patient will be weightbearing as tolerated with the knee held in full extension using the knee immobilizer. Range of motion may be as tolerated when nonweightbearing. I will recommend 23 X/week physical therapy under the [facility] MPFL reconstruction protocol. He will be discharged back to senior living when he has a PT and OT consult assessment. Routine postoperative pain medication and early ambulation for DVT prophylaxis were prescribed. In addition, Alia recommended daily Aspirin 325mg to reduce the risk of venous thromboembolism. Follow-up is scheduled in 10 to 14 days for postoperative examination. Physician temporary administrative assistant attestation: Guido Sanders PA-C was present and scrubbed for the duration of the case. He was essential to prepping/draping, patient positioning, retraction, and assistance with wound closure. I attest to the content of the Intraoperative Record and any orders documented therein. Any exceptions are noted below.
--- NOTE | 2023-03-11 14:38 | Fluoroscopy Report ---
INTRAOPERATIVE RADIOGRAPHS CLINICAL HISTORY: Chondroplasty of the patella. Fluoro time: 13 seconds Ka,r: 1.46 mGy FINDINGS: 3 spot fluoroscopic views of the right knee are correlated with radiographs and MRI dated . Surgical implants project over the patella. Near-anatomic alignment is maintained. Patellar alignment is significantly improved as compared to the preoperative images. IMPRESSION: Intraoperative images from a patellar chondroplasty procedure as above. Electronically signed by: Rojelio Garland M.D. 03/11/2023 2:35 PM
--- NOTE | 2023-03-11 15:00 | Anesthesiology Progress Note ---
Date of Service March 11, 2023 Anesthesia Post Procedure Vital Signs Vital Signs: Temp Pulse Pulse Pulse Pulse Resp BP 03/11/23 14:50 36.5 C 92 H 18 03/11/23 14:30 36.4 C L 92 H 15 03/11/23 14:20 89 14 03/11/23 14:10 74 13 03/11/23 14:00 72 13 03/11/23 13:54 36.6 C 75 18 03/11/23 08:20 36.5 C 71 16 03/10/23 22:10 36.5 C 99 H 16 03/10/23 22:10 03/10/23 21:53 93 H 16 139/92 03/10/23 20:24 93 H 16 03/10/23 17:30 84 26 H 119/67 03/10/23 17:15 85 3 L 03/10/23 17:00 91 H 21 03/10/23 16:45 86 23 150/64 H 03/10/23 16:32 88 21 03/10/23 16:30 88 26 H 03/10/23 16:15 83 17 03/10/23 16:00 90 30 H 03/10/23 15:45 94 H 32 H 03/10/23 15:30 92 H 30 H 135/78 BP Pulse Ox Pulse Ox O2 Del Method O2 Del Method O2 Flow Rate 03/11/23 14:50 166/94 H 2 L Nasal Cannula 03/11/23 14:30 155/82 H 99 Room Air 03/11/23 14:20 137/93 100 Oxymask 4 03/11/23 14:10 129/76 96 Oxymask 8 03/11/23 14:00 131/79 97 Oxymask 8 03/11/23 13:54 130/80 97 Oxymask 10 03/11/23 08:20 130/78 97 Room Air 03/10/23 22:10 147/77 H 97 Room Air 03/10/23 22:10 97 Room Air 03/10/23 21:53 98 Room Air 03/10/23 20:24 145/99 H 98 Room Air 03/10/23 17:30 03/10/23 17:15 95 03/10/23 17:00 99 03/10/23 16:45 100 03/10/23 16:32 95 03/10/23 16:30 97 08/04/23 16:15 95 03/10/23 16:00 96 03/10/23 15:45 97 03/10/23 15:30 94 Pain Intensity Right Knee: Pain Intensity: 4 Transfer of Care Handoff Completed per policy Notes Mental Status: alert / awake / arousable Patient Amnestic to Procedure: Yes Nausea / Vomiting: adequately controlled Pain: adequately controlled Airway Patency, RR, SpO2: stable & adequate BP & HR: stable & adequate Hydration State: stable & adequate Anesthetic Complications: no major complications apparent
[2023-03-11] MEDS: KETOROLAC TROMETHAMINE 15 MG/ML VIAL IV SCH ×2 (16:25→22:07)
[2023-03-11] MEDS: ASCORBIC ACID 500 MG TAB PO SCH (16:31)
[2023-03-11] MEDS: ceFAZolin 2000MG 2,000 MG/15 ML SYR IV SCH (19:37)
[2023-03-11] MEDS: METOPROLOL TARTRATE 100 MG TAB PO SCH (19:39)
[2023-03-11] MEDS ORDERED: VENLAFAXINE HCL 50 MG TAB PO SCH (21:00)
[2023-03-12] MEDS: HYDROmorphone INJ 0.5 MG/0.5 ML SYR IV PRN ×3 (00:01→10:33)
[2023-03-12] MEDS: ceFAZolin 2000MG 2,000 MG/15 ML SYR IV SCH (03:01)
[2023-03-12] MEDS: KETOROLAC TROMETHAMINE 15 MG/ML VIAL IV SCH ×2 (03:02→10:21)
[2023-03-12] MEDS: oxyCODONE HCL IR 5 MG TAB (IMMEDIATE RELEASE) PO PRN ×2 (05:36→08:51)
[2023-03-12] MEDS: ACETAMINOPHEN 500 MG TAB PO SCH (06:00)
[2023-03-12] MEDS: ATORVASTATIN 20 MG TAB PO SCH (08:41)
[2023-03-12] MEDS: ASCORBIC ACID 500 MG TAB PO SCH ×2 (08:41→17:29)
[2023-03-12] MEDS: MIRTAZAPINE TAB 15 MG TAB PO SCH (08:41)
[2023-03-12] MEDS: METOPROLOL TARTRATE 100 MG TAB PO SCH ×2 (08:42→20:00)
[2023-03-12] MEDS: PANTOprazole 40 MG TAB PO SCH (08:42)
[2023-03-12] MEDS: busPIRone 15 MG TAB PO SCH ×2 (08:42→20:00)
[2023-03-12] MEDS: lisinopril 40 MG TAB PO SCH (08:43)
[2023-03-12] MEDS: traZODone HCL 100 MG TAB PO SCH (08:44)
[2023-03-12] MEDS: VENLAFAXINE HCL 50 MG TAB PO SCH (08:44)
[2023-03-12] MEDS ORDERED: KETOROLAC 30 MG/ML VIAL IV PRN (11:45)
[2023-03-12] MEDS ORDERED: HYDROmorphone INJ 0.5 MG/0.5 ML SYR IV PRN (11:45)
[2023-03-12] MEDS ORDERED: diazePAM 5 MG TABLET PO PRN (11:51)
[2023-03-12] MEDS: ACETAMINOPHEN 1,000 MG/100 ML VIAL IV SCH ×2 (12:23→19:58)
--- NOTE | 2023-03-12 13:54 | Orthopedic Progress Note ---
Date of Service March 12, 2023 Assessment & Plan (1) Closed dislocation of right patella: (2) History of right knee surgery: Plan Making expected progress postop day 1. Pain management remains an issue, as expected. Continue hospital stay till improved pain management and stability with oral regimen. Would also benefit from physical therapy acutely before being discharged to the [facility] setting. -Weightbearing as tolerated with the brace on and fastened tight to hold extension. -Brace may come off while in bed for gentle range of motion. -Physical therapy and Occupational Therapy assistance appreciated -usual MPFL repair protocol has been pasted into the discharge instructions. -Pain management: We will obtain pain management consult. For now, will increase opioid regimen and changed to oral hydromorphone, increase as needed Dilaudid IV, add gabapentin, increase Toradol, and switch to IV acetaminophen. We will also add Valium 3 times daily for pain and muscle spasms. Patient remains concerned about opioids in his course of care but can planes of uncontrolled pain. He says he had Suboxone in the past with good success. Prefer pain management opinion Dispo: Will remain in hospital until pain is manageable on oral regimen. We will obtain pain management consult. Plan for discharge as early as tomorrow. Subjective Reports severe pain only controlled for 15 to 20 minutes with current medication regimen. He says his pain is significant aggravated by tremor. He says he has to hold his thigh firm which creates more pain at the patella. He had been seen by physical therapy. He states they had him standing. Unfortunately his leg was hanging off the bed and repositioning caused a pop around the knee. He was placed in a different knee immobilizer by somebody, maybe therapy. Review of Systems All systems reviewed & are unremarkable except as noted in HPI & below. Physical Exam GEN: Seems calm and reserved but states he has severe pain. Diffuse tremors persist RLE: Very loosely applied knee immobilizer was open for icing. Seem to fit with excessive material so it was trimmed and fastened tight and then open for ice. Positive DF/PF/EHL. Neurovascular intact. Thigh compartments soft. Patella palpably reduced. Constitutional WD/WN, vitals as above no acute distress and not intoxicated appearing Respiratory normal respiratory effort; no labored breathing Cardiovascular Extremities: normal capillary refill Results & Data Results & Data Diagnostic Findings . PG Care Time/CCT Total # of Minutes Spent Total Time Spent with Patient: Total time spent is greater than 50% in coordination of care (as documented) at patient's floor/unit and/or counseling patient: Coding Level of Care Code 75821 Post Operative Follow-Up Diagnoses Closed dislocation of right patella S83.004A Encounter type: initial encounter History of right knee surgery Z98.890 (1) Closed dislocation of right patella Encounter type: initial encounter Qualified Code(s): S83.004A - Unspecified dislocation of right patella, initial encounter
[2023-03-12] MEDS ORDERED: oxyCODONE HCL 10 MG TABCR (OxyCONTIN) PO SCH (14:00)
[2023-03-12] MEDS: GABAPENTIN 300 MG CAP PO SCH ×2 (14:24→19:58)
[2023-03-12] MEDS: HYDROmorphone HCL 2 MG TAB PO PRN (14:29)
--- NOTE | 2023-03-12 17:53 | Communication Note ---
Date of Service: March 12, 2023 Patient not seen today but chart reviewed. Vitals remains stable. Agree with decision for pain management consultation to help guide postoperative pain reg imen as patient transitions back to correctional facility. Otherwise no further recommendations from prior consultation note 03/11/23. Medicine will sign off for now. If further questions, please do not hesitate to reach out.
[2023-03-12] MEDS: KETOROLAC 30 MG/ML VIAL IV SCH (20:35)
[2023-03-13] MEDS: KETOROLAC 30 MG/ML VIAL IV SCH ×4 (00:59→17:23)
[2023-03-13] MEDS: ACETAMINOPHEN 1,000 MG/100 ML VIAL IV SCH ×3 (03:40→20:59)
[2023-03-13] MEDS: HYDROmorphone HCL 2 MG TAB PO PRN (06:29)
[2023-03-13] MEDS: HYDROmorphone INJ 1 MG/ML SYRINGE IV PRN ×4 (07:35→21:03)
[2023-03-13] MEDS: VENLAFAXINE HCL 50 MG TAB PO SCH (07:48)
[2023-03-13] MEDS: MIRTAZAPINE TAB 15 MG TAB PO SCH (07:49)
[2023-03-13] MEDS: PANTOprazole 40 MG TAB PO SCH (07:49)
[2023-03-13] MEDS: busPIRone 15 MG TAB PO SCH ×2 (07:49→21:02)
[2023-03-13] MEDS: lisinopril 40 MG TAB PO SCH (07:50)
[2023-03-13] MEDS: ASCORBIC ACID 500 MG TAB PO SCH ×2 (07:50→17:19)
[2023-03-13] MEDS: ATORVASTATIN 20 MG TAB PO SCH (07:50)
[2023-03-13] MEDS: GABAPENTIN 300 MG CAP PO SCH ×4 (07:50→21:02)
[2023-03-13] MEDS: METOPROLOL TARTRATE 100 MG TAB PO SCH ×2 (07:51→21:02)
[2023-03-13] MEDS: traZODone HCL 100 MG TAB PO SCH (07:52)
[2023-03-13] MEDS ORDERED: BACLOFEN 10 MG TAB PO PRN (08:26)
--- NOTE | 2023-03-13 08:35 | Pain Management Consultation ---
Date of Consultation March 13, 2023 Assessment & Plan (1) Acute postoperative pain: (2) Closed dislocation of right patella: Encounter type: initial encounter Qualified Code(s): S83.004A - Unspecified dislocation of right patella, initial encounter (3) Status post fall: (4) Substance abuse in remission: Plan 1. The patient questions whether or not Suboxone would be an option for him postoperatively. I told him that Suboxone could be utilized but would be dependent on approval from the [facility] physicians. He states he would rather utilize that then pure agonist opiates. I told him this would be a discussion for him to have with his potential prescriber at the [facility] and I would not be prescribing his Suboxone at this time. 2. Recommend increasing gabapentin to 600 mg p.o. TID. Orders are written. 3. Recommend discontinuation of oral hydromorphone and utilization of Nucynta 50 mg p.o. every 4 as needed pain. Orders are written. 4. Recommend discontinuation of Valium and utilization of oral baclofen 10 mg p.o. 3 times daily as needed. Orders are written. 5. IV hydromorphone for backup pain relief. 6. Recommend utilization of oral opiates 30 minutes prior to physical therapy for optimal pain control. This was discussed with the patient for preplanning purposes. 7. Thank you for this consultation. Please call with any questions. History of Present Illness Attending Physician: Roscoe Mares MD History of Present Illness 32-year-old male prisoner status post a fall off the toilet with acute right patellar dislocation status post right knee arthroscopy, chondroplasty, open medial patellofemoral ligament and retinacular repair on 03/11/2023. He states his pain ranges between 4-6 out of 10 currently 5 out of 10 sharp stabbing dull aching over the right knee without radiation. He has a prior history of opiate substance use disorder utilizing oxycodone and fentanyl as his drugs of choice. He states he was able to transition off these medications and utilize Suboxone in the past with good effect and was converted to Vivitrol while in inmate. He is no longer utilizing these medications and has concerns over his postoperative pain and craving for agonist opiates. He denies any side effects from his current pain medication regimen including sedation or constipation. He notes that his ongoing tremors have been problematic for him and has a appointment with outpatient neurology in the next few months. He was out of bed since his surgery and had some difficulty due to pain. Pain Assessment [facility] + [facility]: [facility]: 5-Moderate - Cannot perform normal tasks without increase in pain Pain scale - at its best (0-10): 4 Pain scale - at its worst (0-10): 6 Allergies Allergy/AdvReac Type Severity Reaction Status Date / Time No Known Drug Allergies AdvReac nkda Verified 03/10/23 21:37 Home Medications Medication Instructions Recorded Confirmed Type albuterol sulfate 90 mcg/actuation 1 inh inhalation QID PRN Shortness 03/02/23 03/10/23 History aerosol inhaler Of Breath Or Wheezing atorvastatin 20 mg tablet (Lipitor) 20 mg PO DAILY 03/02/23 03/10/23 History buspirone 30 mg tablet 30 mg PO HS 03/02/23 03/10/23 History lisinopril 40 mg tablet 40 mg PO DAILY 03/02/23 03/10/23 History metoprolol tartrate 100 mg tablet 100 mg PO BID 03/02/23 03/10/23 History mirtazapine 15 mg tablet 15 mg PO HS 03/02/23 03/10/23 History venlafaxine 25 mg tablet 25 mg PO HS 03/10/23 03/10/23 History Pain History Pain Intensity Pain scale - at its best (0-10): 4 Pain scale - at its worst (0-10): 6 Patient History Medical History (Updated 03/13/23 @ 08:35 by Muna Mcfadden DO) Anxiety Chronic low back pain Depression High cholesterol HTN (hypertension) Lumbar radicular pain Substance abuse in remission utilized suboxone and vivitrol in past Tremor Surgical History (Updated 03/12/23 @ 13:51 by Roscoe Mares MD) History of right knee surgery Social History Smoking Status: Never smoker Do You Dip or Chew Tobacco: Yes; Hx Alcohol Use: No Hx Substance Use: No Preferred Language: French Communication Ability: Effective Visual Impairment: No Limitations Hearing Ability: Normal Line Crew Supervisor Required: No Beliefs That Will Affect Care: None marital status: Current Living Situation: Other Current Living Situation Comment: [facility] current occupational status: unemployed current occupation: inmate Feels Safe at Home: Yes Assistive Devices: Hospital Bed and Walker Physical Exam Constitutional: WD/WN, vitals as above no acute distress Eyes: PERRL, conjunctivae normal, anicteric sclerae ENMT: external ear and nose normal, oropharynx normal Neck: normal visual inspection Respiratory: normal respiratory effort; no respiratory distress Musculoskeletal: Extremities: + limited ROM of lower extremity (bilateral cuffs secondary to prisoner) Bilateral; + extremities abnormal to inspection (RLE brace with surgical dressing not removed.) Gait: + abnormal gait (not observed) Neurologic: Motor/Sensory: + tremor Psychiatric: A+Ox3, euthymic affect Results (Pain Clinic) Diagnostic Review MRI: non enhanced and reports reviewed MRI Findings: 03/10/23 Exam(s): MRI RIGHT KNEE Without Contrast EXAM: MR Right Lower Extremity Without Intravenous Contrast, Knee CLINICAL HISTORY: Reason for exam: R knee injury. TECHNIQUE: Multiplanar magnetic resonance images of the right knee without intravenous contrast. COMPARISON: No relevant prior studies available. FINDINGS: There are findings of recent lateral patellar dislocation. Medial patellofemoral ligament is completely torn at its femoral attachment. Patella is laterally subluxed with respect to the trochlea. There is chondral surface irregularity along the medial patellar facet suggesting chondral fractures. There is an osteochondral impaction fracture along the peripheral aspect of the lateral femoral condyle with subjacent bone marrow edema. Lipohemarthrosis is noted in the knee. There is a subtle osteochondral fracture involving the medial aspect of the lateral tibial plateau. There is focal articular surface depression measuring 3 mm and subchondral bone marrow edema. Medial and lateral menisci are intact. Femorotibial articular cartilage is maintained. Medial and lateral ligaments and supporting structures are intact. Extensor mechanism is intact. Anterior and posterior cruciate ligaments are intact. There is diffuse subcutaneous edema. IMPRESSION: 1. Recent lateral patellar dislocation with complete tear of the medial patellofemoral ligament at its femoral attachment. 2. Associate osteochondral impaction fracture involving the peripheral aspect of the lateral femoral condyle. 3. Chondral surface irregularity along the medial patellar facet suggesting chondral fracture. 4. Small osteochondral impaction fracture involving the medial aspect of the lateral tibial plateau. 5. Lipohemarthrosis and soft tissue swelling.
--- NOTE | 2023-03-13 09:49 | Orthopedic Progress Note ---
Date of Service March 13, 2023 Assessment & Plan (1) Closed dislocation of right patella: (2) History of right knee surgery: Plan Making expected progress postop day 2. Pain management remains an issue, as expected. Continue POC. Continue hospital stay till improved pain management and stability with oral regimen. Would also benefit from physical therapy acutely before being discharged to the long-term setting. -Weightbearing as tolerated with the brace on and fastened tight to hold extension. -Brace may come off while in bed for gentle range of motion. -Physical therapy and Occupational Therapy assistance appreciated -usual MPFL repair protocol has been pasted into the discharge instructions. -Pain management: appreciate recs. Will need 24 hrs or so to determine effectiveness of new regimen. Dispo: Will remain in hospital until pain is manageable on oral regimen. Per PT/OT, would benefit from acute rehab. Potential readiness tomorrow Subjective Reports continued suboptimal pain control. Pain Mgt consultants in room for their assessment this am. Fell again using the bathroom and felt pop. Review of Systems All systems reviewed & are unremarkable except as noted in HPI & below. Physical Exam RLE: Brace desheveled. Dressing intact but pushed distal on the leg - adjusted. Activates quad with significant inhibition. Too painful to assess ROM. Severe tenderness anterior knee but patella palpably reduced. Constitutional WD/WN, vitals as above not intoxicated appearing Respiratory normal respiratory effort; no labored breathing Cardiovascular Extremities: normal capillary refill Results & Data Results & Data Laboratory Results . Diagnostic Findings . PG Care Time/CCT Total # of Minutes Spent Total Time Spent with Patient: Total time spent is greater than 50% in coordination of care (as documented) at patient's floor/unit and/or counseling patient: Coding Level of Care Code 59046 Post Operative Follow-Up Diagnoses Closed dislocation of right patella S83.004A Encounter type: initial encounter History of right knee surgery Z98.890 (1) Closed dislocation of right patella Encounter type: initial encounter Qualified Code(s): S83.004A - Unspecified dislocation of right patella, initial encounter
[2023-03-13] MEDS: TAPENTADOL HCL 50 MG TAB PO PRN (15:33)
--- NOTE | 2023-03-13 17:18 | XRay Report ---
RIGHT KNEE 2 VIEWS CLINICAL HISTORY: Postoperative examination for patellar dislocation. FINDINGS: AP and crosstable lateral views of the right knee are compared to study dated 03/10/2023. The skeletal structures are well-mineralized. No acute fracture is seen. The medial lateral joint spaces are maintained. Patellar alignment is significant narrowing improved. This is slightly lateral of mi dline on the AP view. There is a joint effusion. Subcutaneous gas, soft tissue edema, and medial skin clips are expected postsurgical changes. Tiny marginal osteophytes and a calcified fabella are incid entally noted. A fibular shaft fracture is again questioned. IMPRESSION: 1. No fracture is seen at the knee joint. 2. Significantly improved postsurgical alignment of the patella. 3. Joint effusion and expected postsurgical changes as above. 4. Question a fibular shaft fracture. Electronically signed by: Rojelio Garland M.D. 03/13/2023 5:16 PM
[2023-03-14] MEDS: TAPENTADOL HCL 50 MG TAB PO PRN ×2 (00:16→07:38)
[2023-03-14] MEDS: KETOROLAC 30 MG/ML VIAL IV SCH ×3 (00:16→13:40)
[2023-03-14] MEDS: HYDROmorphone INJ 1 MG/ML SYRINGE IV PRN ×3 (00:17→07:39)
[2023-03-14] MEDS: ACETAMINOPHEN 1,000 MG/100 ML VIAL IV SCH ×2 (03:57→13:20)
[2023-03-14] MEDS: GABAPENTIN 300 MG CAP PO SCH ×2 (09:13→14:22)
[2023-03-14] MEDS: PANTOprazole 40 MG TAB PO SCH (09:13)
[2023-03-14] MEDS: METOPROLOL TARTRATE 100 MG TAB PO SCH (09:14)
[2023-03-14] MEDS: busPIRone 15 MG TAB PO SCH (09:14)
[2023-03-14] MEDS: VENLAFAXINE HCL 50 MG TAB PO SCH (09:15)
[2023-03-14] MEDS: MIRTAZAPINE TAB 15 MG TAB PO SCH (09:15)
[2023-03-14] MEDS: traZODone HCL 100 MG TAB PO SCH (09:15)
[2023-03-14] MEDS: lisinopril 40 MG TAB PO SCH (09:16)
[2023-03-14] MEDS: ATORVASTATIN 20 MG TAB PO SCH (09:16)
--- NOTE | 2023-03-14 09:30 | Pain Management Progress Note ---
Date of Service March 14, 2023 Assessment & Plan (1) Acute postoperative pain: (2) Closed dislocation of right patella: Encounter type: initial encounter Qualified Code(s): S83.004A - Unspecified dislocation of right patella, initial encounter (3) Status post fall: (4) History of right knee surgery: (5) Substance abuse in remission: Plan 1. The patient again questions whether or not Suboxone would be an option for him postoperatively. He was again informed that Suboxone could be utilized but would be dependent on approval from the [place] physicians. Again, our service would not be writing any prescription for Suboxone, and he would have to further inquire with the [facility] physicians. However, we do feel that the patient could potentially have some further improvement in pain with the Suboxone. 2. Continue gabapentin to 600 mg p.o. TID. 3. Recommend increasing Nucynta from 50 mg PO to 100 mg PO q4h PRN pain - order placed. 4. Patient has not been using the oral baclofen 10 mg PO at all. Recommend changing the order to a scheduled q8h dosing - order placed. 5. Recommend changing IV hydromorphone from q3h to q8h PRN pain - order placed. 6. Continue to recommend utilization of oral opiates 30 minutes prior to physical therapy for optimal pain control. 7. Pain management service will follow peripherally at this time. Admission and Anticipated Discharge Date Admission Date: March 10, 2023 Subjective Patient states he continues to have significant pain, and he is attributing this mainly to not being able to have any relief from the tremors he is experiencing. He feels that if the tremors could be controlled, then he would not be in as much pain. Patient says that he does not want to have to take the IV pain medicine, but right now it is what is working best for him. He would prefer to "just have everything under control". When asked about why he was not using the baclofen, he says that previously he took this "when they were giving me all of the Parkinson's meds and I had tremors when they stopped them, I was given baclofen and it was not helping the pain at all". Case discussed with Dr. Muna Mcfadden. Physical Exam Constitutional: WD/WN, vitals as above no acute distress Eyes: PERRL, conjunctivae normal, anicteric sclerae ENMT: external ear and nose normal, oropharynx normal Neck: normal visual inspection Respiratory: normal respiratory effort; no respiratory distress Musculoskeletal: Brace intact to right lower extremity, donned and well-fitting, dressing c/d/i w/ no active drainage Neurologic: Motor/Sensory: + tremor Psychiatric: A+Ox3, euthymic affect
[2023-03-14] MEDS ORDERED: HYDROmorphone INJ 0.5 MG/0.5 ML SYR IV PRN (10:47)
[2023-03-14] MEDS ORDERED: HYDROmorphone INJ 1 MG/ML SYRINGE IV PRN (10:47)
[2023-03-14] MEDS ORDERED: TAPENTADOL HCL 50 MG TAB PO PRN (10:47)
[2023-03-14] MEDS ORDERED: BACLOFEN 10 MG TAB PO SCH (11:15)
[2023-03-14] MEDS: ASCORBIC ACID 500 MG TAB PO SCH (11:40)
--- NOTE | 2023-03-14 15:57 | Discharge Summary ---
Date of Service March 14, 2023 Admission HPI (Per Admitting) 32-year-old incarcerated male reports that he slipped and fell in the bathroom area today resulting in his significant displacement of his knee and inability to bear weight. He was brought to the emergency room and diagnosed with a traumatic patella dislocation. He states he has never had a patella dislocation or right knee problem before. The pain has been severe. The ER staff attempted appropriate management with closed reduction. Unfortunately, the reduction could not be maintained. He is easily slipped laterally despite all efforts including bracing and taping. Because of reported severe displacement and his inability remain reduced and ambulate safely, an MRI was obtained. Alf guards accompanying him reports that it is challenging for patients to be treated with physical therapy. Patient reports he has had a several year history of significant tremors. When he was at another long term he was treated as if he has had parkinsonian disease. He was administered Parkinson's medications. He did not have much improvement. Upon arrival at [facility], his parkinsonian medication was discontinued. He had a interval relief of some tremor but recently they have started to worsen. He wants to be seen by neurology soon. He says he has about 2 years of incarceration left. He says his tremors resolved significant difficulty walking. He has had leg weakness over the past years. He has been wheelchair- bound at times. He says when the parkinsonian medications were discontinued he made significant progress from a wheelchair to a walker and then eventually to a cane. Recently his left-sided tremors have become worse and he is reverted back to a cane, and he thinks that may be a wheelchair may be soon. He is very concerned about his knee because he has enough difficulty getting about the present as is. He has no confidence that a knee brace will be helpful for him given his current state. Admission Exam (Per Admitting) General: He has significant tremor throughout the left more so than the right upper and lower extremities. He has clear insight. He converses well. He gives a detailed history. RLE: There is significant edema and effusion about the knee. The patella is obviously laterally translocated. It is easily reducible. And also will laterally translate over a few minutes of relaxation. It is quite unstable. He is unable to activate his quad form straight leg raise. Positive DF/PF/EHL. Sensation grossly intact to light touch. He is intolerant of the ligamentous knee exam. Constitutional WD/WN, vitals as above Psychiatric A+Ox3, euthymic affect (Somewhat agitated with the tremors but pleasantly conversant and cooperativ) Principal Diagnosis Same as "Discharge Diagnosis" noted below under Discharge Instructions. Discharge Exam RLE: Brace well fit today. Dressing was removed. His wound is well- approximated without erythema or drainage. The yaquelin were intact. Steri- Strips over the portals were clean and dry. Foam dressing placed over the medial incision with an ABD over the portals, contained by the large Oscar wrap. His knee immobilizer was replaced. He is able to activate his quad. He does somewhat of a straight leg raise with gentle active assist with a guard holding his foot. Distally neurovascular intact Constitutional WD/WN, vitals as above Psychiatric A+Ox3, euthymic affect (Somewhat agitated with the tremors but pleasantly conversant and cooperativ) Discharge Data Consultations 03/10/23 22:24 Consult Internal Medicine Routine 03/12/23 11:30 Consult Pain Management Routine Procedures Performed Operation Date: 03/11/23 10:00 Actual Procedures p Right Knee Arthroscopy, Chondroplasty, Open Medial Patellofemoral Ligament and Retinacular Repair(Right) - Roscoe Mares MD Ordered Studies 03/10/23 12:51 MRI Knee [MR knee RT wo con] Stat 03/11/23 FL knee RT 1 or 2V Routine 03/11/23 10:43 US - OR guided needle placemen Stat Hospital Course (1) Substance abuse in remission: (2) Poor mobility: (3) History of right knee surgery: (4) Closed dislocation of right patella: Encounter type: initial encounter Qualified Code(s): S83.004A - Unspecified dislocation of right patella, initial encounter (5) Instability of right knee joint: (6) Status post fall: Plan Patient was admitted from the emergency room due to the unstable knee. He was taken to the operative room the following morning for knee arthroscopy, chondroplasty, loose body removal, and open medial retinacular and medial patellofemoral ligament repair. The surgery was uncomplicated. He remained an inpatient for initial rehabilitation evaluation. He had some issues with pain control due to tremors. The pain service was consulted. He was started on a multi drug regimen directed at controlling his pain and trying to address the tremors which are chronic. He does have a neurology appointment scheduled in the future to address the tremors. He had his pain medication regimen adjusted on postoperative day 2. The pains management service and myself felt that he was stable for transfer to acute rehab. He is not a candidate to return to present yet, as he remains a high fall risk due to the tremors and the immobility due to his knee injury and surgery. PG Care Time/CCT Total # of Minutes Spent Total Time Spent with Patient: Total time spent is greater than 50% in coordination of care (as documented) at patient's floor/unit and/or counseling patient: Discharge Plan Discharge Items Patient Disposition: Transfer Inpatient Rehab Fac Reason For Visit: TRAUMATIC PATELLAR DISLOCATION Discharge Diagnosis: SAME Condition on Discharge: Fair Activity: Per Instructions section Non-emergency contact: Surgeon Call non-emergency contact if: you have any medication questions, your pain is not controlled and your temperature is above 101 Follow-up/Referrals: Roscoe Mares MD [Surgeon] - Cydney WASHINGTON [Primary Care Provider] - Diet: Regular Addtl Attending Provider Instructions: Roscoe Mares M.D. [facility] Orthopedic Surgery [address], [place] [address] POSTOPERATIVE INSTRUCTIONS Medial Patellofemoral Ligament (MPFL) Repair BRACE: Keep the postoperative brace in place unless the limb is fully supported in a resting position. Always wear your brace holding extension when walking, standing, or transferring. You may open your brace for careful hygiene and ROM exercises described below. MOTION: You always want to be sure to get the knee completely straight back of knee towards the bed. Range of motion as tolerated no restrictions. You may gradually increase flexion as pain allows. WEIGHTBEARING: Weightbearing as tolerated means you can walk on your leg as your pain allows. Use your crutches for support. Gradually return to full weightbearing. You may discontinue crutches when you can safely walk without a limp. ACTIVITY: Please perform ROM (Range of Motion) exercises at least three times per day: 1. Ankle plantarflexion (gas pedal down) and dorsiflexion (pull foot up) 2. Toe flexion/extension wiggle toes 3. Straight leg raises hold your quads tight, lift your heel off the bed 12-15 inches while keeping the knee straight. Repeat. 4. Knee flexion/extension You may unlock the brace and slowly bend the knee. While lying with the leg fully supported, you may also take off the brace to slowly bend the knee as tolerated by sliding your foot. WOUND CARE: Leave the dressing in place and keep the area clean and dry. After 3 days, you may remove your dressing. DO NOT REMOVE ANY SUTURES. DO NOT REMOVE THE PAPER TAPE STRIPS THAT ARE CROSSING YOUR INCISION THEY WILL FALL OFF GRADUALLY IN 2-3 WEEKS. After removing your dressing, you may begin to shower. Do not soak the incision. Allow gentle soap and water to run over the wound(s) and pat dry. Please cover the incision(s) with a clean, dry dressing, as needed. Do not use any ointments or topical medications unless directed by your s urgeon. Do not submerse the incisions in water no pools, oceans, lakes, jacuzzis, bathtubs, etc for at least 3 weeks. PAIN CONTROL Elevation is your best friend. Elevate the affected extremity above the level of your heart. Swelling is simply fluid. Elevation will allow the fluid to run down hill, reduce swelling, and decrease pain. The affected extremity should be continuously elevated for the first 2-3 days, with the exception of bathroom, hygiene, etc. You may be prone to swelling for several weeks, or until you return to normal function with your leg. Use ice (or cryocuff if you have one). Use for 30 minutes per hour. Do not leave in place longer than 30 minutes, especially when your block is in effect, to prevent frostbite or thermal injury. DVT PREVENTATIVE MEDICATION: 1. Aspirin 325mg: Take one aspirin tablet per day for the first 30 days to reduce the risk of dangerous blood clots. FOLLOWUP: 1. Ortho Clinic: You should be seen in 10-14 days. Please call immediately to schedule if you do not have an appointment. WHEN TO CALL. If you develop any of the following symptoms, please contact the Orthopedic Clinic at [phone]: Temperature greater than 100.5 taken twice, difficulty breathing, bleeding, fever and chills, increased pain unrelieved by pain meds, uncomfortable cast or splint, or any other concerns. Recommend Physical Therapy for the following protocol.... REHABILATION PROTOCOL FOR MEDIAL PATELLOFEMORAL LIGAMENT REPAIR Thank you for evaluating and treating our patient. This protocol should serve as a guide. We appreciate and acknowledge our rehabilitation partners expertise and are open to feedback for improvements. Please use your professional judgement to meet patient goals and progress safely. Please contact our clinic with any questions or concerns. We can provide surgical details or operative report upon request. WBing BRACE ROM EXERCISES PHASE I 0-6 weeks Clinic Visit at 2 weeks. As tolerated with brace Brace at all times when ambulatory. May be removed for sleeping after first postop unless otherwise instructed. May change to Patellar stabilization brace with early good quad control. Weeks 0-2: 0-90 Weeks 2-6: Maintain full extension and Advance to full flexion with gentle active-assist Heel slides quad and hamstring sets, patellar mobilizations, gastroc stretch and calf raises, SLR in brace, modalities Add core and hip strengthening within restrictions for fitness. Weeks 2-6: Progress weight bearing flexibility, begin toe raises and closed chain quad work. Begin floor-based core and glutes work, balance exercises, hamstring curls and stationary bike. PHASE II 6-16 weeks Clinic Visit at 6 weeks and 12 weeks Full Discontinue at 6 weeks if good quad control. Full Advance closed chain quads, progress balance, core/pelvic and stability work Begin elliptical, in-line jogging at 12 weeks under PT supervision PHASE III 4-6 months Clinic Visit at Month 5-6 Full None Full Progress flexibility/strengthening, progression of function: forward/backward running, cutting, grapevine, initiate plyometric program and sport-specific drills @ 16 wks Return to play as tolerated after 16 weeks post-op when cleared by MD Please note that the pain management service believes he is a good candidate to consider treatment of his chronic opioid abuse with Vivitrol or Suboxone. The patient states she has had success with Suboxone in the past. This should be prescribed to the long term health clinic. Pending Studies at Discharge: No Stand-Alone Forms: My [employer], Smoking Cessation Skilled Items Patient informed of condition?: Yes DNR: No Discharge Level of Care: Acute rehab Communicable Disease: No Discharge Prognosis: Improving Lines: None Urinary Catheter: No Medications and DC Order Prescriptions: New trazodone 100 mg Tablet 100 mg PO DAILY Qty: 30 0RF baclofen 10 mg Tablet 10 mg PO Q8 Qty: 90 0RF gabapentin 300 mg Capsule 600 mg PO TID Qty: 90 1RF Nucynta 50 mg Tablet 100 mg PO Q4H PRN (Reason: pain) Qty: 30 0RF Continued albuterol sulfate 90 mcg/actuation HFA aerosol inhaler 1 inh inhalation QID PRN (Reason: Shortness Of Breath Or Wheezing) atorvastatin [Lipitor] 20 mg tablet 20 mg PO DAILY buspirone 30 mg tablet 30 mg PO HS lisinopril 40 mg tablet 40 mg PO DAILY metoprolol tartrate 100 mg tablet 100 mg PO BID mirtazapine 15 mg tablet 15 mg PO HS venlafaxine 25 mg Tablet 25 mg PO HS Discharge Orders: Discharge Order (Routine); Ordered 03/14/23 Ordered By: Roscoe Mares Admission Data Admit Date/Time: 03/10/23 20:23 Attending Provider: Roscoe Mares Admit Provider: Roscoe Mares Primary Care Provider: Cydney WASHINGTON Other Providers: Brian Mcintyre ; Tessy Call ; Rickie Ramirez ; Ken Morales ; Acosta Gale ; Mode Lazo ; Rojelio Lilly ; Sera Smith ; Betzaida Villegas ; Richie Hidalgo ; Jess Gorman ; Eyal Hodge ; Rissa Segovia ; Roscoe Garcia ; Kapil Connor ; Tessy Cordvoa ; Ama Cisneros ; Ino Duff ; Rickie Huston ; Osmin Ng ; Radha Cano ; Vince Galindo ; Hipolito Overton ; Deepak Handy ; Jessenia Case ; Deb Alejandre ; Heladio Sofia ; Alejandra Greco ; Ruth Herndon ; Ken Augustine ; Acosta Hughes ; Shin Tang ; Muna Mcfadden ; Julius Erwin ; Luz Maria Leger ; Mode Hylton. ; [facility]
== END 2023-03-14 18:08 | DRG 489 ==
LOC: ED 09:20 → 3W 20:23

== ENCOUNTER 2025-04-15 12:33 | Inpatient (IN) ==
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
[2025-04-15] MEDS: LR 60ML/HR IV SCH (13:00)
[2025-04-15] MEDS: ACETAMINOPHEN 500 MG TAB PO SCH ×2 (13:08→21:45)
[2025-04-15] MEDS: GABAPENTIN 900 MG DOSE PO SCH (13:08)
[2025-04-15] MEDS: dexAMETHasone**PF** 10 MG/ML VIAL IV SCH (13:09)
[2025-04-15 13:39] LABS: Anion Gap 6.0 (3-11); Blood Urea Nitrogen 10.0 mg/dl (6-23); Calcium 9.4 mg/dl (8.6-10.3); Carbon Dioxide 28.0 mmol/L (21-32); Chloride 106.0 mmol/L (98-107); Creatinine Clr Calc Pharmacy 145.4 ml/min; Glucose 105.0 mg/dl (70-99(Fasting)); Potassium 4.1 mmol/L (3.5-5.1); Sodium 140.0 mmol/L (136-145)
--- NOTE | 2025-04-15 13:50 | Anesthesiology Consultation ---
Date of Service April 15, 2025 Assessment & Plan ASA ASA2 Proposed Anesthesia Anesthesia Type: General Risk / Benefits Reviewed With: PT / POA / Parent / Guardian, Accepts Plan and Informed Consent Obtained History Surgery Operation Date: 04/15/25 14:15 Proposed Procedures p Right Knee Arthroscopy, Lysis of Adhesions, Manipulation Under Anesthesia - Roscoe Mares MD Height/Weight Height: 6 ft 1 in Weight: 149.3 kg Allergies Allergy/AdvReac Type Severity Reaction Status Date / Time No Known Drug Allergies AdvReac nkda Verified 04/15/25 12:56 Medications Home Medications Medication Instructions Recorded Confirmed Last Taken albuterol sulfate 90 mcg/actuation 1 inh inhalation QID PRN Shortness 03/02/23 04/15/25 04/12/25 aerosol inhaler Of Breath Or Wheezing lisinopril 40 mg tablet 40 mg PO DAILY 03/02/23 04/15/25 04/14/25 08:00 benztropine 0.5 mg tablet 0.5 mg PO HS 07/12/24 04/15/25 04/14/25 19:30 mirtazapine 45 mg tablet 45 mg PO HS 07/12/24 04/15/25 04/14/25 19:30 olanzapine 10 mg tablet 10 mg PO HS 07/12/24 04/15/25 04/14/25 19:30 atorvastatin 40 mg tablet (Lipitor) 40 mg PO HS 11/18/24 04/15/25 04/14/25 19:30 ciclesonide 80 mcg/actuation 1 puff inhalation BID 11/18/24 04/15/25 04/13/25 19:30 aerosol inhaler (Alvesco) propranolol 20 mg tablet 20 mg PO QID 11/18/24 04/15/25 04/14/25 19:30 buprenorphine 8 mg-naloxone 2 mg 1 tab sublingual DAILY 04/09/25 04/15/25 04/14/25 08:00 sublingual tablet docusate sodium 100 mg capsule 100 mg PO BID 04/09/25 04/15/25 04/14/25 19:30 gabapentin 400 mg capsule 400 mg PO TID 04/09/25 04/15/25 04/14/25 19:30 tamsulosin 0.4 mg capsule 0.4 mg PO HS 04/09/25 04/15/25 04/13/25 19:30 Active Medications Generic Name Dose Route Start Last Admin Trade Name Darling PRN Reason Stop Dose Admin Acetaminophen 1,000 mg 04/15/25 06:00 04/15/25 13:08 Acetaminophen 500 Mg Tab PO 04/15/25 18:00 1,000 mg PREOP FARIHA Administration Dexamethasone Sodium Phosphate 10 mg 04/15/25 06:00 04/15/25 13:09 DexamethasonePf 10 Mg/Ml Vial IV 04/15/25 18:00 10 mg PREOP FARIHA Administration Gabapentin 900 mg 04/15/25 06:00 04/15/25 13:08 Gabapentin 900 Mg Dose PO 04/15/25 18:00 900 mg PREOP FARIHA Administration Lactated Ringer's 1,000 mls @ 60 mls/hr 04/15/25 06:00 04/15/25 13:00 Lr IV 04/15/25 22:39 60 mls/hr .[id number] FARIHA Administration NPO Date Last Intake of Fluids: 04/14/25 Time Last Intake of Fluids: 21:45 Date Last Intake of Solids: 04/14/25 Time Last Intake of Solids: 21:45 Past Medical History Medical History Inmate in correctional facility History of asthma Benign hypertension GERD (gastroesophageal reflux disease) hx Hyperlipidemia Hx of dental abscess Adjustment disorder with mixed anxiety and depressed mood 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 Muscle weakness (generalized) Post traumatic stress disorder (PTSD) no dissociative symptoms Alcoholism and drug addiction in family Patellofemoral disorders, unspecified knee Pain in right knee Tremor, unspecified Lymphedema chronic Prediabetes Opioid use disorder chronic Drug induced constipation Hesitancy of micturition Exercise / Class Metabolic Activity II 4-5 Yardwork/Stairs/Walk up hill Past Surgical History Surgical History Surgical history unknown Past Anesthesia History No Hx of Anesthesia Complications and No Family Hx of Anesthesia Complications History of PONV No Hx of PONV and No Hx of Motion Sickness Social History Smoking Status: Unknown if ever smoked Hx Substance Use: Yes (opioid use disorder noted in record) substance use type: does not use Last Used Substance Other:: unknown Review of Systems denies fever/cough/ colds/ chest pain/ SOB/ SVETA denies SVETA Physical Exam Vital Signs Last Vital Signs Temp 36.7 C 04/15/25 12:50 Pulse 75 04/15/25 12:50 Resp 18 04/15/25 12:50 BP 144/78 H 04/15/25 12:50 Pulse Ox 96 04/15/25 12:50 O2 Del Method Room Air 04/15/25 12:50 ENMT Mouth: no TMJ abnormality and no dentition abnormality Thyromental Distance: > or= 3.5 Finger Breadths Mallampati Class: II Neck neck extension not limited Respiratory normal respiratory effort; no respiratory distress Auscultation: lungs clear to auscultation bilaterally Cardiovascular Rate/Rhythm: regular rate and regular rhythm Neurologic moves all extremities Psychiatric Orientation: alert and oriented x 3 Testing Laboratory Results 04/15/25 12:49
[2025-04-15] MEDS: PROPRANOLOL HCL 20 MG TAB PO ONE (13:57)
[2025-04-15] MEDS ORDERED: DEXAMETHASONE SOD INJ 4 MG/ML VIAL ONE (15:16)
[2025-04-15] MEDS ORDERED: MIDAZOLAM HCL 1 MG/ML 2ML VIAL ONE (15:16)
[2025-04-15] MEDS ORDERED: ONDANSETRON INJ 2 MG/ML 2 ML VIAL ONE ×2 (15:16→17:15)
[2025-04-15] MEDS ORDERED: LIDOCAINE 2% 2 ML VIAL/AMP(20MG/ML) INFIL ONE (15:16)
[2025-04-15] MEDS ORDERED: PROPOFOL IV EMULSION 10 MG/ML 20 ML VIAL IV ONE ×2 (15:16→15:17)
--- NOTE | 2025-04-15 15:52 | History & Physical Report ---
Date of Service April 15, 2025 Assessment & Plan (1) Chronic pain of right knee: (2) Contracture, right knee: Plan The surgical plan for an arthroscopic lysis of adhesions and manipulation under anesthesia has been talked about for several months with this patient. We discussed the plan and informed consent was obtained to proceed as he desired. History of Present Illness Chief Complaint: Right knee pain and stiffness Primary Care Provider: PADMINI Quijano 34-year-old incarcerated male presents today to proceed with a surgical plan that we decided upon on February 05, 2025. In the interim has had no changes to his condition nor his health history. We did successfully get him approved for iovera treatment to help with his complicated perioperative pain. He did report that he fell on his knee the other night because the floor was slippery. He impacted the anterior side directly. Allergies Allergy/AdvReac Type Severity Reaction Status Date / Time No Known Drug Allergies AdvReac nkda Verified 04/15/25 12:56 Home Medications Medication Instructions Recorded Confirmed Type albuterol sulfate 90 mcg/actuation 1 inh inhalation QID PRN Shortness 03/02/23 04/15/25 History aerosol inhaler Of Breath Or Wheezing lisinopril 40 mg tablet 40 mg PO DAILY 03/02/23 04/15/25 History benztropine 0.5 mg tablet 0.5 mg PO HS 07/12/24 04/15/25 History mirtazapine 45 mg tablet 45 mg PO HS 07/12/24 04/15/25 History olanzapine 10 mg tablet 10 mg PO HS 07/12/24 04/15/25 History atorvastatin 40 mg tablet (Lipitor) 40 mg PO HS 11/18/24 04/15/25 History ciclesonide 80 mcg/actuation 1 puff inhalation BID 11/18/24 04/15/25 History aerosol inhaler (Alvesco) propranolol 20 mg tablet 20 mg PO QID 11/18/24 04/15/25 History buprenorphine 8 mg-naloxone 2 mg 1 tab sublingual DAILY 04/09/25 04/15/25 History sublingual tablet docusate sodium 100 mg capsule 100 mg PO BID 04/09/25 04/15/25 History gabapentin 400 mg capsule 400 mg PO TID 04/09/25 04/15/25 History tamsulosin 0.4 mg capsule 0.4 mg PO HS 04/09/25 04/15/25 History Past Med/Surg History Problem List Encounter for pre-operative examination Chronic pain of right knee Contracture, right knee Substance abuse in remission utilized suboxone and vivitrol in past Poor mobility Previous diagnosis of Parkinson's disease but felt to be erroneous diagnosis. Ongoing neurologic evaluation for tremors + poor mobility Coarse tremors Previous diagnosis of Parkinson's disease but felt to be erroneous diagnosis. 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 Muscle weakness (generalized) Post traumatic stress disorder (PTSD) no dissociative symptoms Alcoholism and drug addiction in family Patellofemoral disorders, unspecified knee Pain in right knee Tremor, unspecified Lymphedema chronic Prediabetes Opioid use disorder chronic Drug induced constipation Hesitancy of micturition Surgical History Surgical history unknown Social History Smoking Status: Unknown if ever smoked Hx Substance Use: Yes (opioid use disorder noted in record) Last Used Substance Other:: unknown Preferred Language: Maldivian Communication Ability: unknown Visual Impairment: No Limitations Hearing Ability: Normal Parachute Supervisor Required: No Beliefs That Will Affect Care: None marital status: Current Living Situation: Other Current Living Situation Comment: inmate PADMINI quijano current occupational status: unemployed current occupation: inmate Feels Safe at Home: Yes Assistive Devices: Hospital Bed and Walker Assistive Devices Comment: unknown Review of Systems All systems reviewed & are unremarkable except as noted in HPI & below. Physical Exam Right knee: Mild effusion. Able to achieve full passive extension in the bed. He is shackled but clearly contracted with flexion of only 10 to 20 degrees. No palpable or visible signs of trauma from his recent fall. Constitutional WD/WN, vitals as above no acute distress and not intoxicated appearing Respiratory normal respiratory effort; no labored breathing Cardiovascular Extremities: normal capillary refill Results & Data Results & Data Laboratory Results . Diagnostic Findings . PG Care Time/CCT Total # of Minutes Spent Total Time Spent with Patient: Total time spent is greater than 50% in coordination of care (as documented) at patient's floor/unit and/or counseling patient: Coding Level of Care Code None Diagnoses Chronic pain of right knee M25.561; G89.29 Contracture, right knee M24.561
[2025-04-15] MEDS ORDERED: SODIUM CHLORIDE 0.9% PF INJ 10 ML VIAL ONE (16:22)
[2025-04-15] MEDS ORDERED: GLYCOPYRROLATE 0.2 MG/ML VIAL ONE (16:23)
[2025-04-15] MEDS ORDERED: ceFAZolin 330 MG/ML 1 GM VIAL ONE (16:23)
[2025-04-15] MEDS: BUPIVACAINE/EPINEPHRINE 0.25% 1:200,000 30 ML VIAL ONE (16:27)
[2025-04-15] MEDS: TRANEXAMIC ACID 1,000 MG **IV Pre-op IV SCH (17:14)
[2025-04-15] MEDS ORDERED: PROMETHAZINE HCL 6.25 MG in SODIUM CHLORIDE 0.9% 50 ML IV PRN (17:48)
[2025-04-15] MEDS ORDERED: ONDANSETRON INJ 2 MG/ML 2 ML VIAL IV PRN ×2 (17:48→19:33)
[2025-04-15] MEDS ORDERED: ATROPINE SULFATE 0.1 MG/ML 10ML SYR IV PRN (17:48)
[2025-04-15] MEDS ORDERED: ALBUTEROL HFA 8 GM INHALER INH PRN (17:55)
[2025-04-15] MEDS: HYDROmorphone INJ 2 MG/ML SYR/VIAL IV PRN (18:12)
--- NOTE | 2025-04-15 18:23 | Operative Report ---
PG Post Operative Report Pre & Post Diagnosis Operation Date: 04/15/25 14:15 Pre-Op Diagnosis: (1) Chronic pain of right knee: (2) Contracture, right knee Post-Op Diagnosis: (1) Chronic pain of right knee: (2) Contracture, right knee I identified the patient and participated in the time-out.: Yes Procedure Operation Date: 04/15/25 14:15 Actual Procedures p Right knee arthroscopy, lysis of adhesions, chondroplasty, lateral release, synovectomy.(Right) - Roscoe Mares MD Surgeon Roscoe Mares MD Shop Router None Estimated Blood Loss 5 Findings See Below Holding area active/voluntary attempt at motion yielded full extension and about 20 degrees of knee flexion with guarding. EUA showed full passive extension and flexion without restrictions about 110 degrees. Post lysis of adhesions and synovectomy again unlimited flexion to calf on thigh. Arthroscopy Velbe suprapatellar pouch adhesions which were released and debrided. The medial retinacular. Evidence of healing and integrity of the repair. The patella was not able to be dislocated with lateral translation. Lateral retinacular release was performed due to slight lateral tilt. Some chondromalacia evidence on the far lateral margin of the lateral trochlea and a nonweightbearing area. The medial facet of the patella had fibrocartilage overgrowth from posttraumatic chondroplasty which was treated with chondroplasty again to a smooth margin. Mild synovitis throughout the retropatellar fat pad which was debrided. No medial compartment pathology. Lateral compartment intact. Intact collaterals. Specimens None Anesthesia Type General Complications none Disposition Accompanied Patient To Recovery: No Disposition: Recovery Room Indications 34-year-old incarcerated male known to me from a patellar dislocation event that occurred acutely in the care home. It was unreducible in the ER so he underwent acute repair of his medial retinacula. He never returned to full motion following this. He had a complicated phase of pain presentation. After extensive attempts at pain management he was left with not much active motion and functional disability of the knee. Serial exams were concerning for lack of active flexion. Subsequent MRI report revealed contracture findings of the capsule. I offered a lysis of adhesions procedure to restore motion and functional gait and he was agreeable for the past year. We obtained pain management assistance and preoperative iovera treatment. Reviewed the risk, benefits and alternatives to arthroscopic lysis of adhesions in detail over s everal visits. He was interested in proceeding. He was authorized to the care home system so we proceeded to confirm the consent today. Patient was agreeable. Description of Procedure On the day of surgery, the patient was greeted in the preoperative holding area. The informed consent was reviewed and confirmed. The surgical site was identified by the patient and signed by myself. The leg hair was trimmed. The patient was turned over to the anesthesia team. The patient was taken to the operating room and placed upon the OR table. Anesthesia was induced. The position was supine for knee arthroscopy with a lateral post. All bony prominences were well-padded and protected. A nonsterile tourniquet was placed high on the thigh with barrier drape. Examination under anesthesia was carried out. Again, there was easy flexion beyond 90 degrees. He had full passive extension. There is no crepitus. The patella had 1 quadrant medial patella mobility 2 quadrant lateral patella mobility, symmetric to his uninjured side. Mild crepitus through passive range of motion. Brief timeout was called to anesthetize the knee. A total of 60 cc of quarter percent Marcaine with epinephrine was used at the proposed portal sites, and the majority was infused into the knee through the superior lateral access. The operative extremity was prepped and draped in usual sterile fashion for knee arthroscopy. Surgical timeout was called by the circulating nurse, and verified by all present. Antibiotics had been infused, and the equipment was available and functional. Using superficial landmarks, the lateral portal was established using a #11 blade. The trocar was used to enter the joint. The camera was then introduced. The medial portal was established using arthroscopic visualization and spinal needle for localization. The capsulotomy performed using an 11 blade under arthroscopic visualization. A probe was introduced, and thorough diagnostic arthroscopy was carried out revealing the findings listed above. Attention was directed to the medial compartment. There was intact cartilage and meniscal structures. Despite this being the primary area of pain there was no intra-articular findings to correlate with his symptoms. The medial gutter was evaluated. He had appropriate attachments of the medial retinacula. Appeared to have appropriate tension to the MCL and MPFL within the capsule. Mild synovitis and adhesion bands throughout the medial gutter were released. The intracondylar notch was significant synovitis which was released along the ligamentum and resected back throughout the fat pad. Sibley RF wand electrocautery was performed. The lateral compartment was entered in the [id number] position. The lateral compartment had no chondral nor meniscal pathology. The anterior compartment was addressed. The medial patellar facet impaction lesion had some fibrillated overgrowth which was reduced back using the motorized shaver. The lateral wall the trochlea also had some full-thickness chondral loss which was treated with abrasion chondroplasty to remove unstable flaps and gain marrow stimulation in the 8 x 6 area of full-thickness loss. The seem to be a nonweightbearing portion, and may have been related to the original injury. Patella tracking was evaluated. He had lateral tracking and some lateral tilt. A lateral release was performed to improve this. There was no ability to dislocate his patella laterally with manual maneuvers. The suprapatella pouch was inspected. There was some thickened synovitis it was debrided using the motorized shaver. Electrocautery wand was used to release the suprapatellar pouch. The diagnostic arthroscopy was repeated to ensure no missed pathology nor loose debris. The knee was then thoroughly irrigated with arthroscopic fluid and drained through the arthroscopic cannula before removal of all instruments. The wounds were then closed with interrupted 3-0 Monocryl suture, backed up by Steri-Strips. The wounds were dressed with sterile Xeroform, sterile gauze, ABD, and contained by web roll followed by an Oscar wrap. The patient tolerated the procedure well, was extubated in the operating room without complication, and transferred to the recovery area in stable condition. Disposition: The patient will be weightbearing and range of motion as tolerated. He will remain inpatient until pain management plan for the present is established given his history. PT and OT should be initiated immediately for gait training. Crutches will be used as needed. Early ambulation for DVT prophylaxis was prescribed. In addition, Alia recommended daily Aspirin 81 mg twice daily to reduce the risk of venous thromboembolism. Pain management will be consulted if needed. He was seen preoperatively and will continue their plan. Follow-up is scheduled in 10 to 14 days for postoperative examination. I attest to the content of the Intraoperative Record and any orders documented therein. Any exceptions are noted below.
--- NOTE | 2025-04-15 18:40 | Anesthesiology Progress Note ---
Date of Service April 15, 2025 Anesthesia Post Procedure Vital Signs Vital Signs: Temp Pulse Pulse Resp BP BP Pulse Ox 04/15/25 18:20 76 21 139/76 92 04/15/25 18:10 36.6 C 85 18 127/82 93 04/15/25 18:00 79 17 143/89 H 99 04/15/25 17:50 76 16 134/85 100 04/15/25 17:41 36.5 C 84 21 136/94 97 04/15/25 12:50 36.7 C 75 18 144/78 H 96 O2 Del Method O2 Flow Rate 04/15/25 18:20 Room Air 04/15/25 18:10 Room Air 04/15/25 18:00 Room Air 04/15/25 17:50 Oxymask 4 04/15/25 17:41 Oxymask 9 04/15/25 12:50 Room Air Pain Intensity Right Knee: Pain Intensity: 7 Transfer of Care Handoff Completed per policy Notes Mental Status: alert / awake / arousable and participated in evaluation Patient Amnestic to Procedure: Yes Nausea / Vomiting: adequately controlled Pain: improving with treatment Airway Patency, RR, SpO2: stable & adequate BP & HR: stable & adequate Hydration State: stable & adequate Anesthetic Complications: no major complications apparent and Pt Satisfied with anesthetic care
[2025-04-15] MEDS: KETOROLAC 30 MG/ML VIAL IV ONE (18:42)
[2025-04-15] MEDS: HYDROmorphone INJ 0.5 MG/0.5 ML SYR IV PRN (18:44)
[2025-04-15] MEDS ORDERED: MAGNESIUM HYDROXIDE SUSP 30 ML UDC PO PRN ×2 (19:33)
[2025-04-15] MEDS ORDERED: NALOXONE HCL 0.4 MG/1 ML VIAL/CARP IV PRN (19:33)
[2025-04-15] MEDS ORDERED: ALUMINUM/MAGNESIUM SUSP 30 ML UDC PO PRN (19:33)
[2025-04-15] MEDS ORDERED: HYDROmorphone INJ 0.5 MG/0.5 ML SYR IV PRN (19:33)
[2025-04-15] MEDS: SODIUM CHLORIDE 0.9% 1,000 ML IV SCH (21:43)
[2025-04-15] MEDS: GABAPENTIN 400 MG CAP PO SCH (21:48)
[2025-04-15] MEDS: DOCUSATE SODIUM 100 MG CAP PO SCH (21:48)
[2025-04-15] MEDS: ASPIRIN 81 MG ECTAB PO SCH (21:48)
[2025-04-15] MEDS: ATORVASTATIN 40 MG TAB PO SCH (21:49)
[2025-04-15] MEDS: MIRTAZAPINE SOLTAB 15 MG PO SCH (21:49)
[2025-04-15] MEDS: BENZTROPINE MESYLATE 0.5 MG TAB PO SCH (21:50)
[2025-04-15] MEDS: OLANZapine 10 MG TAB PO SCH (21:50)
[2025-04-15] MEDS: PROPRANOLOL HCL 20 MG TAB PO SCH (21:50)
[2025-04-15] MEDS: TAMSULOSIN HCL 0.4 MG CAP PO SCH (21:51)
[2025-04-15] MEDS: SENNA 8.6 MG TAB PO SCH (21:54)
[2025-04-15] MEDS: KETOROLAC 30 MG/ML VIAL IV PRN (22:02)
[2025-04-16] MEDS: HYDROmorphone INJ 2 MG/ML SYR/VIAL ONE (00:03)
[2025-04-16] MEDS: KETOROLAC 30 MG/ML VIAL ONE (00:03)
[2025-04-16] MEDS: HYDROmorphone INJ 0.5 MG/0.5 ML SYR IV PRN (00:10)
[2025-04-16] MEDS ORDERED: TAPENTADOL HCL 50 MG TAB PO PRN (07:18)
[2025-04-16] MEDS: TAPENTADOL HCL 50 MG TAB PO PRN (09:31)
[2025-04-16] MEDS: BUPRENORPHINE/NALOXONE 8/2 MG TAB SL SCH (09:32)
[2025-04-16] MEDS: MULTIVITAMIN TAB PO SCH (09:33)
[2025-04-16] MEDS: FLUTICASONE FUROATE 100MCG 14 PUFFS/INHALER INH SCH (09:34)
--- NOTE | 2025-04-16 09:47 | Orthopedic Progress Note ---
Date of Service April 16, 2025 Assessment & Plan (1) Chronic pain of right knee: * Continue Current Treatment * Disposition: TBD * Daily treatment: Physical Therapy/ Occupational Therapy per protocol * Weight bearing status: WBAT * XR knee ordered due to fall this morning * Appreciate pain management consult and recommendations * Continue Nucynta for now * Continue to monitor for ABLA * Pain control * DVT prophylaxis, ASA * Office/hospital f/u 2 weeks for progress check and staple/suture removal * Plan for discharge today/tomorrow pending PT/OT clearance, pain control Subjective . Active Problems: S/p Right knee arthroscopy, lysis of adhesions, chondroplasty, lateral release, synovectomy. POD 1 34 y/o male s/p Right knee arthroscopy, lysis of adhesions, chondroplasty, lateral release, synovectomy. Doing well overall. Working on pain control, pain management consult pending. Reports falling on to right knee this morning while using urinal. Has been ambulatory around room and is working with PT/OT at time of exam Denies fever/chills, chest pain/SOB, nausea/vomiting. Otherwise no complaints. Review of Systems All systems reviewed & are unremarkable except as noted in HPI & below. Physical Exam . * General: Alert and oriented, no acute distress * Constitutional: well-developed, well-nourished. * Respiratory: Normal respiratory effort, no distress * Gastrointestinal: No tenderness to palpation, no rigidity or guarding. * Skin: No rash or lesion. * Neurologic: Grossly normal * Musculoskeletal: Right knee surgical dressing CDI, not removed for exam. Otherwise no obvious deformity or overlying skin changes RLE. Diffuse TTP distal thigh and knee region. Otherwise no specific tenderness of proximal thigh, lower leg, foot/ankle. AROM knee flexion 100 degrees. AROM foot/ankle intact. Sensation intact plantar/dorsal foot. Brisk capillary refill. Results & Data Results & Data Laboratory Results . Diagnostic Findings . PG Care Time/CCT Total # of Minutes Spent Total Time Spent with Patient: Total time spent is greater than 50% in coordination of care (as documented) at patient's floor/unit and/or counseling patient: Coding Level of Care Code 73194 Post Operative Follow-Up Diagnoses Chronic pain of right knee M25.561; G89.29
--- NOTE | 2025-04-16 13:34 | XRay Report ---
XR knee RT 1 or 2V routine CLINICAL HISTORY: fall, pain COMPARISON: 05/22/2023 FINDINGS: Stable linear calcification adjacent to the medial femoral condyle consistent with sequela of old injury. No acute fracture or dislocation seen. There is minimal osteoarthritis. There is a tr ej joint effusion. IMPRESSION: No acute fracture seen. ACT 112: Negative or not required by law. Electronically signed by: Jose Theodore M.D. 04/16/2025 1:33 PM
[2025-04-17 07:52] VITALS: RESP 16
--- NOTE | 2025-04-17 08:38 | Orthopedic Progress Note ---
Date of Service April 17, 2025 Assessment & Plan (1) Chronic pain of right knee: * Continue Current Treatment * Disposition: TBD * Daily treatment: Physical Therapy/ Occupational Therapy per protocol * Weight bearing status: WBAT * Appreciate pain management consult and recommendations * Continue Nucynta for now * Continue to monitor for ABLA * Pain control * DVT prophylaxis, ASA * Office/hospital f/u 2 weeks for progress check and staple/suture removal * Plan for discharge today pending PT/OT clearance, pain control Subjective Active Problems: S/p Right knee arthroscopy, lysis of adhesions, chondroplasty, lateral release, synovectomy. POD 2 34 y/o male s/p Right knee arthroscopy, lysis of adhesions, chondroplasty, lateral release, synovectomy. Doing well overall. Working on pain control, improving. Has been ambulatory around room and has improved mobility. Knee XR unremarkable for injury after fall yesterday. Denies fever/chills, chest pain/SOB, nausea/vomiting. Otherwise no complaints. Review of Systems All systems reviewed & are unremarkable except as noted in HPI & below. Physical Exam * General: Alert and oriented, no acute distress * Constitutional: well-developed, well-nourished. * Respiratory: Normal respiratory effort, no distress * Gastrointestinal: No tenderness to palpation, no rigidity or guarding. * Skin: No rash or lesion. * Neurologic: Grossly normal * Musculoskeletal: Right knee surgical dressing CDI, not removed for exam. Otherwise no obvious deformity or overlying skin changes RLE. Diffuse TTP distal thigh and knee region. Otherwise no specific tenderness of proximal thigh, lower leg, foot/ankle. AROM knee flexion 100 degrees. AROM foot/ankle intact. Sensation intact plantar/dorsal foot. Brisk capillary refill. Results & Data Results & Data Laboratory Results . Diagnostic Findings . Knee X-Ray 04/16/25 09:42 XR knee RT 1 or 2V routine CLINICAL HISTORY: fall, pain COMPARISON: 05/22/2023 FINDINGS: Stable linear calcification adjacent to the medial femoral condyle consistent with sequela of old injury. No acute fracture or dislocation seen. There is minimal osteoarthritis. There is a trace joint effusion. IMPRESSION: No acute fracture seen. ACT 112: Negative or not required by law. Electronically signed by: Jose Theodore M.D. 04/16/2025 1:33 PM PG Care Time/CCT Total # of Minutes Spent Total Time Spent with Patient: Total time spent is greater than 50% in coordination of care (as documented) at patient's floor/unit and/or counseling patient: Coding Level of Care Code 07066 Post Operative Follow-Up Diagnoses Chronic pain of right knee M25.561; G89.29
--- NOTE | 2025-04-17 08:49 | Pain Management Consultation ---
Date of Consultation April 17, 2025 Assessment & Plan (1) Chronic pain of right knee: (2) Poor mobility: (3) Opioid use disorder: (4) Alcoholism and drug addiction in family: (5) Inmate in correctional facility: Plan 1. Will increase the Gabapentin to 600mg TID 2. Increase Nucynta from 50 to 75 mg. This is for post op pain only and will be discontinued at orthopedics/residential's discretion. 3. Continue Toradol, Tylenol 4, Continue chronic Suboxone 5. Will discontinue IV Dilaudid in anticipation of discharge 6. Recommend he work with PT after discharge 7. Will sign off on patient. Please contact with any questions or concerns. History of Present Illness Attending Physician: Roscoe Mares MD History of Present Illness This is a 34 year old prisoner for right knee pain. He fell off a toilet and sustained a right patellar dislocations status post right knee arthroscopy, chondroplasty, open medial patellofemoral ligament and retinacular repair on 03/11/[address] Mares. He then developed significant contracture of the knee and persistent knee pa Dr. Mares then performed a right knee arthroscopy, lysis of adhesions, chondroplasty, lateral release, synovectomy on 04/15/2025. He did have cryoneurolysis of the genicular nerves by Dr. Olea on 03/26/2025 to help with post op pain. He reports falling onto his right knee yesterday morning while using the urinal - imaging does not show any acute fracture. Post operatively she is still experiencing significant pain in the right knee. He is on Suboxone 8mg/2mg SL daily for pain and previous opioid addiction to Oxycodone and Fentanyl. For post op pain he has Gabapentin 400mg TID, Tylenol 1 gram TID, Toradol 30mg IV x 6 hours, and has Nucynta 50mg q 4 hours PRN and IV Dilaudid 0.5 mg if needed for breakthrough pain. Patient states that he was on Gabapentin 600mg TID after his previous surgery which seemed to help. He also states that the Nucynta is providing very mild pain relief for about 10 minutes. Denies any dizziness, constipation, confusion. Case discussed with Dr. Muna Mcfadden Allergies Allergy/AdvReac Type Severity Reaction Status Date / Time No Known Drug Allergies AdvReac nkda Verified 04/15/25 12:56 Home Medications Medication Instructions Recorded Confirmed Type albuterol sulfate 90 mcg/actuation 1 inh inhalation QID PRN Shortness 03/02/23 04/15/25 History aerosol inhaler Of Breath Or Wheezing lisinopril 40 mg tablet 40 mg PO DAILY 03/02/23 04/15/25 History benztropine 0.5 mg tablet 0.5 mg PO HS 07/12/24 04/15/25 History mirtazapine 45 mg tablet 45 mg PO HS 07/12/24 04/15/25 History olanzapine 10 mg tablet 10 mg PO HS 07/12/24 04/15/25 History atorvastatin 40 mg tablet (Lipitor) 40 mg PO HS 11/18/24 04/15/25 History ciclesonide 80 mcg/actuation 1 puff inhalation BID 11/18/24 04/15/25 History aerosol inhaler (Alvesco) propranolol 20 mg tablet 20 mg PO QID 11/18/24 04/15/25 History buprenorphine 8 mg-naloxone 2 mg 1 tab sublingual DAILY 04/09/25 04/15/25 History sublingual tablet docusate sodium 100 mg capsule 100 mg PO BID 04/09/25 04/15/25 History gabapentin 400 mg capsule 400 mg PO TID 04/09/25 04/15/25 History tamsulosin 0.4 mg capsule 0.4 mg PO HS 04/09/25 04/15/25 History Patient History Medical History Inmate in correctional facility History of asthma Benign hypertension GERD (gastroesophageal reflux disease) hx Hyperlipidemia Hx of dental abscess Adjustment disorder with mixed anxiety and depressed mood 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 Muscle weakness (generalized) Post traumatic stress disorder (PTSD) no dissociative symptoms Alcoholism and drug addiction in family Patellofemoral disorders, unspecified knee Pain in right knee Tremor, unspecified Lymphedema chronic Prediabetes Opioid use disorder chronic Drug induced constipation Hesitancy of micturition Surgical History Surgical history unknown Social History Smoking Status: Unknown if ever smoked Hx Substance Use: Yes (opioid use disorder noted in record) Last Used Substance Other:: unknown Preferred Language: Jamaican Communication Ability: unknown Visual Impairment: No Limitations Hearing Ability: Normal High Lift Operator Required: No Beliefs That Will Affect Care: None marital status: Current Living Situation: Other Current Living Situation Comment: inmate [employer] current occupational status: unemployed current occupation: inmate Feels Safe at Home: Yes Assistive Devices: Hospital Bed and Walker Assistive Devices Comment: unknown Physical Exam Physical Exam: GENERAL: This is a 34 year old male. + Moderate tremor noted. HEAD/FACE: Normocephalic and atraumatic. EYES: No drainage or conjunctival injection. ENT: Nose without bleeding or discharge. Oral mucosa moist. NECK: Full ROM without apparent pain. No swelling or masses noted. RESPIRATORY: Patient with unlabored breathing. No signs of respiratory distress. CHEST/AXILLA: Chest movement symmetrical. No deformities noted. CARDIOVASCULAR: Patients heart rate is regular, with pulse rate as documented. No edema noted. ABDOMEN/GI: No distension BACK: Moves without difficulty SKIN: [place], warm and dry. No rash noted. MS/EXTREMITY: + right knee in immobilizer. NEURO: Alert and appears oriented. Speech is fluent. Cranial Nerves are grossly intact. PSYCH: Alert, pleasant, affect is calm
[2025-04-17] MEDS: TAPENTADOL HCL 50 MG TAB PO PRN (12:27)
[2025-04-17] MEDS: GABAPENTIN 300 MG CAP PO SCH (14:54)
[2025-04-17 15:54] VITALS: PULSE 68; TEMP 98.6; O2SAT 94
[2025-04-17 16:48] VITALS: BP 117/70
--- NOTE | 2025-04-21 16:58 | Discharge Summary ---
Date of Service April 21, 2025 Admission HPI (Per Admitting) 34-year-old incarcerated male presents today to proceed with a surgical plan that we decided upon on February 05, 2025. In the interim has had no changes to his condition nor his health history. We did successfully get him approved for iovera treatment to help with his complicated perioperative pain. He did report that he fell on his knee the other night because the floor was slippery. He impacted the anterior side directly. Admission Exam (Per Admitting) Right knee: Mild effusion. Able to achieve full passive extension in the bed. He is shackled but clearly contracted with flexion of only 10 to 20 degrees. No palpable or visible signs of trauma from his recent fall. Principal Diagnosis Same as "Discharge Diagnosis" noted below under Discharge Instructions. Discharge Exam * General: Alert and oriented, no acute distress * Constitutional: well-developed, well-nourished. * Respiratory: Normal respiratory effort, no distress * Gastrointestinal: No tenderness to palpation, no rigidity or guarding. * Skin: No rash or lesion. * Neurologic: Grossly normal * Musculoskeletal: Right knee surgical dressing CDI, not removed for exam. Otherwise no obvious deformity or overlying skin changes RLE. Diffuse TTP distal thigh and knee region. Otherwise no specific tenderness of proximal thigh, lower leg, foot/ankle. AROM knee flexion 100 degrees. AROM foot/ankle intact. Sensation intact plantar/dorsal foot. Brisk capillary refill. Discharge Data Consultations 04/16/25 08:25 Consult Pain Management Routine Procedures Performed Operation Date: 04/15/25 14:15 Actual Procedures p Right knee arthroscopy, lysis of adhesions, chondroplasty, lateral release, synovectomy.(Right) - Roscoe Mares MD Hospital Course (1) S/P right knee arthroscopy: (2) Chronic pain of right knee: (3) Contracture, right knee: (4) Substance abuse in remission: (5) Poor mobility: Plan Patient was admitted on the day of surgery, 04/15/2025, following the procedure due to the expected complicated pain management and poor mobility due to his chronic injury. Despite the report of a fall in the night after surgery, he appeared to have no issues. Pain management was controllable with oral pain medications. He mobilized appropriately with PT and OT as an inpatient. On postoperative day #2, he was deemed stable for discharge for outpatient pain management at the senior living with the expectations of continuing rehabilitation as an outpatient. PG Care Time/CCT Total # of Minutes Spent Total Time Spent with Patient: Total time spent is greater than 50% in coordination of care (as documented) at patient's floor/unit and/or counseling patient: Discharge Plan Discharge Items Patient Disposition: Correctional Facility Reason For Visit: Right Knee Contracture, History of Right Knee Surg Discharge Diagnosis: s/p right knee arthroscopy Activity: Per Instructions section Non-emergency contact: Surgeon Call non-emergency contact if: your symptoms worsen, your temperature is above 101.5, your wound has increased redness and your wound has increased drainage Follow-up/Referrals: Roscoe Mares MD [Surgeon] - SC[facility] [Primary Care Provider] - Diet: Regular Addtl Attending Provider Instructions: General Orthopedic Discharge Instructions Activity: As tolerated Diet: You may resume previous diet. Medications: 1. Resume baseline Suboxone therapy 2. Gabapentin, Toradol as prescribed 3. Resume previous home medications unless otherwise instructed Dressing Care: If there is a soft dressing in place then leave the dressing intact for 5 days. On the you may remove the dressing and leave the stitches open to air or cover them with band-aids. Keep the incision clean and dry If there is a hard splint then leave it in place until your follow-up visit in 2 weeks Showering: If you have a soft dressing you may shower right after the surgery but do not get the dressing wet. After the dressing is removed on the 5th day then you can get the stitches wet in the shower, but do not soak or scrub them. Let the soapy shower water run over the stitches and pat them dry. If you have a hard splint, cover it in a plastic bag and keep it dry. Do not remove it until the follow up appointment. Things To Watch For: 1. Drainage from the incision site that occurs more than one week after your surgery. 2. Increased redness at the incision site. 3. Fever above 102 degrees Fahrenheit. 4. Unusual chest pain or shortness of breath. 5. Call [facility] at with any of the above problems. Follow-Up Visit: Please make arrangements to follow-up with Dr. Mares team approximately 2 weeks after your day of surgery for progress check and staple/suture removal. If you have any questions call Pending Studies at Discharge: No Skilled Items Patient informed of condition?: No DNR: No Discharge Level of Care: Other Communicable Disease: No Discharge Prognosis: Stable Lines: None Urinary Catheter: No Medications and DC Order Prescriptions: New gabapentin 300 mg Capsule 600 mg PO TID Qty: 90 0RF ketorolac 10 mg tablet 10 mg PO Q8H 5 Days Qty: 15 0RF Continued albuterol sulfate 90 mcg/actuation HFA aerosol inhaler 1 inh inhalation QID PRN (Reason: Shortness Of Breath Or Wheezing) lisinopril 40 mg tablet 40 mg PO DAILY Alvesco 80 mcg/actuation HFA aerosol inhaler 1 puff inhalation BID atorvastatin [Lipitor] 40 mg tablet 40 mg PO HS olanzapine 10 mg tablet 10 mg PO HS benztropine 0.5 mg tablet 0.5 mg PO HS mirtazapine 45 mg tablet 45 mg PO HS propranolol 20 mg tablet 20 mg PO QID gabapentin 400 mg Capsule 400 mg PO TID Rx Instructions: samantha tamsulosin 0.4 mg Capsule 0.4 mg PO HS docusate sodium 100 mg Capsule 100 mg PO BID buprenorphine-naloxone 8-2 mg Tablet, Sublingual 1 tab SUBLINGUAL DAILY Rx Instructions: [facility] Admission Data Admit Date/Time: 04/15/25 18:06 Attending Provider: Roscoe Mares Admit Provider: Roscoe Mares Primary Care Provider: Samm [place] Other Providers: Shin Tang; Muna Mcfadden; Julius Erwin; Rojelio Lilly; Luz Maria Leger Other Interventions: Discharge Summary Assessment (RN) Last Done: 04/17/25 16:34
== END 2025-04-17 19:00 | DRG 489 ==
LOC: ASU 12:33 → 3E 12:33 → OBSVTOIN 18:06